=== PATIENT | female | born 1990 ===

== ENCOUNTER 2020-12-30 10:12 | Emergency (ER) | payer OTHER, SELFPAY ==
--- NOTE | ~2020-12-30 | XR_ITS ---
EXAMINATION: XR KNEE, LEFT CLINICAL INFORMATION: Pain COMPARISON: None TECHNIQUE: Four views of the left knee. FINDINGS: Bones and soft tissues are normal. No fracture or joint effusion. Alignment is anatomic. Joint spaces are well maintained. No abnormal soft tissue calcification. XR/XR knee LT 2V IMPRESSION: Normal left knee.
[2020-12-30 10:27] VITALS: BP 133/70; PULSE 78; RESP 20; TEMP 36.8; O2SAT 100; BMI 24.5
--- NOTE | 2020-12-30 12:13 | ED.LOWEXIN ---
HPI - Extremity Injury (Lower) General Chief Complaint: Extremity Problem Stated Complaint: knee pain - work related Time Seen by Provider: 12/30/20 11:29 Source: patient Mode of arrival: ambulatory Limitations: no limitations History of Present Illness HPI Narrative: 30-year-old female presenting to the ED with work related injury that occurred on Wednesday to her right knee. She reports that there was a resident that got up from the chair although she was trying to tell him to slow down while she was trying to get the walker move a chair out of the way although he started to fall therefore he leaned on the patient and she used her left knee the needle on a chair and the cushion of the chair went and in her knee with into the cushion and since then she has been having pain especially with walking she feels like her knee is unstable and she has some swelling and ecchymosis noted. She denies any other injuries complaints or concerns at this time. MD complaint: knee injury Onset (ago): day(s) (Two days ago) Place: work Severity: moderate Relieving factors: nothing Exacerbating factors: weight bearing, movement and palpation Context: other (Went through the cushion of the chair at work) Associated symptoms: swelling and ambulatory Other symptoms: none Related Data Previous Rx's Medication Instructions Recorded hydrocodone 5 mg-acetaminophen 325 1 tab PO Q8H PRN #10 tab 12/30/20 mg tablet ibuprofen 800 mg tablet 800 mg PO Q8H PRN #14 tab 12/30/20 lidocaine HCl 4 % topical cream 1 appl TOPICAL BID PRN #120 g 12/30/20 (Aspercreme (lidocaine HCl)) Allergies Allergy/AdvReac Type Severity Reaction Status Date / Time No Known Allergies Allergy Verified 12/30/20 11:29 Review of Systems Review of Systems: Constitutional : No Fever, No Chills ENT/Mouth : No Ear Pain, No Hoarseness, No sore throat Eyes: No Eye Pain, No Swelling, No Redness, No Foreign Body Cardiovascular : No Chest Pain, No SOB Respiratory : No Cough, No Dyspnea Gastrointestinal : No Nausea, No Vomiting, No Diarrhea, No abdominal Pain Genitourinary : No Dysuria, No Hematuria Musculoskeletal : Positive left knee joint pain/swelling No Myalgias Skin : No Skin lacerations, No rash Neuro : No Weakness, No Numbness, No Paresthesias, No Loss of Consciousness, No Dizziness, No Headache Psych : No Anxiety/Panic, No Depression Heme/Lymph: no easy bruising, no Lymphadenopathy Endocrine : No Polyuria, No Polydipsia Yes all other systems are reviewed and are negative [facility] Past Medical History Attestation statement: The following information was validated with the patient. Social History Social History Advance Directives: No Advance Directives Information Provided: No Physical Exam Vital Signs: Vital Signs: Last Vital Signs Temp 98.2 F 12/30/20 10:27 Pulse 78 12/30/20 10:27 Resp 20 12/30/20 10:27 BP 133/70 12/30/20 10: Pulse Ox 100 12/30/20 10:27 Body Mass Index 24.5 vital signs have been reviewed as normal and appeared to be correct. Blood pressure normal Heart rate normal. Respiration rate normal. Temperature normal. Oxygen saturation normal. Appearance: Alert. Oriented X3. No acute distress. Head: Normal external exam. Normocephalic. Atraumatic. Eyes: PERRLA. EOMI. Conjunctiva and sclera normal. Eyelids normal. ENT: Pharynx normal. Uvula midline. Moist mucous membranes. Neck: Normal inspection. Neck supple. FROM. CVS: Normal heart rate and rhythm. Respiratory: No respiratory distress. Painless inspiration. Skin: Skin warm and dry. Normal skin color. Normal skin turgor. No rashes/lesions/lacerations noted. Extremities: Patient with tenderness to palpation to left knee at the patellar aspect with mild soft tissue swelling and ecchymosis noted. No joint effusions noted. No obvious ligamentous injury. Patient has full range of motion of the left knee. No signs of infection. No calf tenderness is noted. No lower extremity edema. Otherwise all other Extremities exhibit normal range of motion and nontender. Neuro: Oriented X 3. No motor deficit. No sensory deficit. Reflexes normal. Normal steady gait. No focal neuro deficits noted. Vascular: + radial pulses/+ 2 distal pedal pulses/+2 dorsalis pedis b/l. Normal cap refill. No cyanosis noted to upper extremity nails and lower extremity toes nails. 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 On exam patient has full range of motion no obvious ligamentous or tendon injury. No signs of infection. Not consistent with septic joint. Patient has a normal steady gait. Will place an Will wrap and treat symptomatic along with referral to Orthopedics and instructions follow-up with primary care provider and to return if any new or worsening symptoms. Patient understands agrees with this plan. MDM - Extremity Injury (Lower) Medical Records Attestation: I reviewed the patient's medical records. Imaging Data Left knee x-ray: Attestation: I personally reviewed and interpreted this imaging study as follows: Radiologist's impression: FINDINGS: Bones and soft tissues are normal. No fracture or joint effusion. Alignment is anatomic. Joint spaces are well maintained. No abnormal soft tissue calcification.? XR/XR knee LT 2V IMPRESSION: Normal left knee. Discharge Plan Discharge Clinical Impression: Left knee sprain, Traumatic ecchymosis of left knee, Work related injury Patient Disposition: Home, Self-Care Instructions: Knee Sprain (ED), Contusion in Adults (ED), Return to Work Instructions (ED) Prescriptions: New lidocaine HCl [Aspercreme (lidocaine HCl)] 4 % cream 1 appl topical BID PRN (Reason: pain) Qty: 120 RF: 0 ibuprofen 800 mg tablet 800 mg PO Q8H PRN (Reason: pain) Qty: 14 RF: 0 hydrocodone-acetaminophen 5-325 mg tablet 1 tab PO Q8H PRN (Reason: pain) Qty: 10 RF: 0 Referrals: Espinoza Calvo MD [Physician] - 2 days (Call to make a follow-up appointment within 1-2 weeks if symptoms persist) Physician,None [Primary Care Provider] - 2 days (your pcp) Stand Alone Forms: Work/School Release Print Language: Jordanian
== END 2020-12-30 12:45 | disposition home or self-care (01) ==
PROVIDERS: Emergency Provider Emergency Medicine
DX: S83.92XA Sprain of unspecified site of left knee, initial encounter (principal); X58.XXXA Exposure to other specified factors, initial encounter; Y93.9 Activity, unspecified; Y92.89 Other specified places as the place of occurrence of the external cause; Y99.0 Civilian activity done for income or pay
CPT/HCPCS: 73560; 99283

== ENCOUNTER 2021-03-20 09:46 | Emergency (ER) | payer OTHER, SELFPAY ==
--- NOTE | ~2021-03-20 | XR_ITS ---
EXAMINATION: XR CHEST CLINICAL INFORMATION: Pain COMPARISON: None TECHNIQUE: Frontal view of the chest was obtained. FINDINGS: No acute finding. Lung girard are grossly clear. There is no effusion. The cardiac silhouette is unremarkable for AP projection. XR/XR chest 1V IMPRESSION: No acute finding
[2021-03-20 09:55] VITALS: BP 128/75; PULSE 80; RESP 17; TEMP 36.6; O2SAT 100; BMI 25.0
--- NOTE | 2021-03-20 10:14 | ECG_ITS ---
Test Reason : chest pain, weakness, exhaustion, kidney pain Blood Pressure : / mmHG Vent. Rate : 064 BPM Atrial Rate : 064 BPM P-R Int : 148 ms QRS Dur : 092 ms QT Int : 398 ms P-R-T Axes : 019 042 027 degrees QTc Int : 410 ms Normal sinus rhythm with sinus arrhythmia Normal ECG No previous ECGs available Referred By: Sandi Cornejo Electronically Signed By:Aguilar Grayson
--- NOTE | 2021-03-20 10:14 | ED.URI ---
HPI - URI/Sore Throat General Chief Complaint: Upper Respiratory Symptoms Stated Complaint: chest pain, fatigue Time Seen by Provider: 03/20/21 10:14 Source: patient Mode of arrival: ambulatory Limitations: no limitations History of Present Illness MD elicited complaint: cough and other (chest pain, body aches, fatigue) Pertinent past history: other (vaccinated x 2) Onset (ago): day(s) (5) Consistency: constant Severity: moderate Description of mucous: clear Able to tolerate fluids by mouth: Yes Exacerbating factors: exertion Relieving factors: nothing Context: sick contacts (exposed to COVID) Associated symptoms: chills, myalgias, rhinorrhea, cough, chest pain and shortness of breath Treatments prior to arrival: acetaminophen Related Data Previous Rx's Medication Instructions Recorded hydrocodone 5 mg-acetaminophen 325 1 tab PO Q8H PRN #10 tab 12/30/20 mg tablet ibuprofen 800 mg tablet 800 mg PO Q8H PRN #14 tab 12/30/20 lidocaine HCl 4 % topical cream 1 appl TOPICAL BID PRN #120 g 12/30/20 (Aspercreme (lidocaine HCl)) Allergies Allergy/AdvReac Type Severity Reaction Status Date / Time No Known Allergies Allergy Verified 12/30/20 11:29 Review of Systems Review of Systems: Constitutional : No Weight loss, No Fever, pos Chills ENT/Mouth : No sore throat, No Rhinorrhea Eyes: No Eye Pain, No Swelling Cardiovascular : pos Chest Pain, pos SOB, no Dyspnea on Exertion, No Orthopnea, No Edema, No Palpitations Respiratory : pos Cough, No Sputum Gastrointestinal : no Nausea, No Vomiting, No Diarrhea, No abdominal Pain, No Hematochezia, No Melena Genitourinary : No Dysuria, No Urinary Frequency Musculoskeletal : No joint pain, pos Myalgias, No Joint Swelling Skin : No Skin Lesions, No rash Neuro : No Weakness, No Numbness, No Dizziness, No Headache Psych : No Anxiety/Panic, No Depression Heme/Lymph: No Bruising, No Lymphadenopathy Endocrine : No Polyuria, No Polydipsia All other systems reviewed and are negative [facility] Past Medical History Medical History (Updated 03/20/21 @ 11:40 by Sandi Cornejo DO) No known health problems Social History Social History (Updated 03/20/21 @ 10:49 by Sandi Cornejo DO) Patient Tobacco Use Status: Current everyday Tobacco user Advance Directives: No Advance Directives Information Provided: No Patient : No Physical Exam Vital Signs: Vital Signs: Last Vital Signs Temp 98 F 03/20/21 09:55 Pulse 80 03/20/21 09:55 Resp 17 03/20/21 09:55 BP 128/75 03/20/21 09:55 Pulse Ox 98 03/20/21 10:53 BMI result Body Mass Index 25.0 Appearance: Alert. Oriented X3. No acute distress. Eyes: Pupils equal, round and reactive to light. ENT: Pharynx normal. Neck: Normal inspection. Neck supple. CVS: Normal heart rate and rhythm. Pulses normal. Respiratory: No respiratory distress. Breath sounds normal. Abdomen: Soft and nontender. Skin: Skin warm and dry. Normal skin color. Normal skin turgor. Extremities: No lower extremity edema. No calf ttp Neuro: Oriented X 3. No motor deficit. No sensory deficit. Course Course Course Narrative: ddimer negative trop and COVID/chest xray negative VS stable MDM - URI/Sore Throat MDM Narrative Medical decision making narrative: 30 yo female on OCPs here with 2 vaccines states she was exposed to COVID comes in with c/o dyspnea, chest pain, at this time will need CXR, ddimer, troponin and COVID test seems viral in nature - dispo per results and findings. Lab Data Result diagrams: 03/20/21 10:47 03/20/21 10:47 Labs: Lab Results 03/20/21 03/20/21 03/20/21 Range/Units 10:23 10:47 10:47 WBC 6.1 (4.8-10.8) X10*3/uL RBC 4.21 (4.20-5.50) X10*6/uL Hgb 13.5 (12.0-16.0) g/dl Hct 39.4 (37.0-47.0) % MCV 93.6 (80.0-98.0) fL MCH 32.1 (27.0-33.0) pg MCHC 34.3 (31.0-35.0) g/dl RDW 12.1 (11.0-16.0) % Plt Count 200 (160-400) X10*3/uL MPV 10.7 (9.4-12.3) fL Immature Gran % (Auto) 0.2 (0.0-0.4) % Neut % (Auto) 69.1 (45-73) % Lymph % (Auto) 25.6 (20-40) % [place] % (Auto) 4.1 (2-11) % Eos % (Auto) 0.5 (0-4) % Baso % (Auto) 0.5 (0-2) % Lymph # (Auto) 1.6 (1.2-4.9) X10*3/uL [place] # (Auto) 0.3 (0.1-1.2) X10*3/uL Eos # (Auto) 0.0 (0.0-0.4) X10*3/uL Baso # (Auto) 0.0 (0.0-0.2) X10*3/uL Abs Immat Gran (auto) 0.01 (0.00-0.03) X10*3/uL Absolute Neuts (auto) 4.2 (2.0-8.3) x10*3/uL Absolute Nucleated RBC 0.000 (0.0-0.012) X10*3/uL Nucleated RBC % (auto) 0.0 (0.0-0.2) /100WBC D-Dimer High Sensitivty < 150 NG/ML Sodium (135-145) mmol/L Potassium (3.3-5.1) mmol/L Chloride (96-108) mmol/L Carbon Dioxide (22-29) mmol/L Anion Gap (12-20) BUN (9-16) mg/dL Creatinine (0.5-1.4) mg/dL Estim Creat Clear Calc Estimated GFR Random Glucose (60-115) mg/dL Calcium (8.4-10.2) mg/dL Troponin I High Sens (<3.5-17.0) ng/L COVID-19 (DOUG) Negative (Negative) COVID-19 Clin Com See Note 03/20/21 03/20/21 Range/Units 10:47 10:47 WBC (4.8-10.8) X10*3/uL RBC (4.20-5.50) X10*6/uL Hgb (12.0-16.0) g/dl Hct (37.0-47.0) % MCV (80.0-98.0) fL MCH (27.0-33.0) pg MCHC (31.0-35.0) g/dl RDW (11.0-16.0) % Plt Count (160-400) X10*3/uL MPV (9.4-12.3) fL Immature Gran % (Auto) (0.0-0.4) % Neut % (Auto) (45-73) % Lymph % (Auto) (20-40) % [place] % (Auto) (2-11) % Eos % (Auto) (0-4) % Baso % (Auto) (0-2) % Lymph # (Auto) (1.2-4.9) X10*3/uL [place] # (Auto) (0.1-1.2) X10*3/uL Eos # (Auto) (0.0-0.4) X10*3/uL Baso # (Auto) (0.0-0.2) X10*3/uL Abs Immat Gran (auto) (0.00-0.03) X10*3/uL Absolute Neuts (auto) (2.0-8.3) x10*3/uL Absolute Nucleated RBC (0.0-0.012) X10*3/uL Nucleated RBC % (auto) (0.0-0.2) /100WBC D-Dimer High Sensitivty NG/ML Sodium 137 (135-145) mmol/L Potassium 3.9 (3.3-5.1) mmol/L Chloride 108 (96-108) mmol/L Carbon Dioxide 25 (22-29) mmol/L Anion Gap 8 L (12-20) BUN 12 (9-16) mg/dL Creatinine 0.73 (0.5-1.4) mg/dL Estim Creat Clear Calc 111.5 Estimated GFR > 60 Random Glucose 92 (60-115) mg/dL Calcium 9.1 (8.4-10.2) mg/dL Troponin I High Sens < 3.5 (<3.5-17.0) ng/L COVID-19 (DOUG) (Negative) COVID-19 Clin Com ECG Data Attestation: I personally reviewed and interpreted this ECG as follows: ECG interpretation date: 03/20/21 ECG interpretation time: 11:10 Interpretation: Rate: 66 Rhythm: NSR [place]: normal Normal P waves. Normal OMARI. Normal QRS complex. ST T wave : no CHITRA normal qTC: normal prior studies: no acute ischemia The study has been interpreted contemporaneously by me. . Discharge Plan Discharge Clinical Impression: Viral infection, Atypical chest pain Patient Disposition: Home, Self-Care Instructions: Chest Pain (ED), Viral Syndrome (ED) Additional Instructions: return to ED for any worsening symptoms or concerns COVID test negative EKG, blood tests for heart and blood clot are negative repeat COVID test as outpatient in 2 days Prescriptions: No Action lidocaine HCl [Aspercreme (lidocaine HCl)] 4 % cream 1 appl topical BID PRN (Reason: pain) Qty: 120 RF: 0 ibuprofen 800 mg tablet 800 mg PO Q8H PRN (Reason: pain) Qty: 14 RF: 0 hydrocodone-acetaminophen 5-325 mg tablet 1 tab PO Q8H PRN (Reason: pain) Qty: 10 RF: 0 Stand Alone Forms: Work/School Release
[2021-03-20 10:43] LABS: COVID-19 Test Negative (Negative)
[2021-03-20 10:53] VITALS: O2SAT 98
[2021-03-20 10:55] LABS: MANUAL DIFF FLAG NO
[2021-03-20 10:56] LABS: Basophils Percent Auto 0.5 % (0-2); Eosinophils Percent Auto 0.5 % (0-4); Hematocrit 39.4 % (37.0-47.0); Hemoglobin 13.5 g/dl (12.0-16.0); Imm Gran Abs Auto 0.01 X10*3/uL (0.00-0.03); Imm Gran Pct Auto 0.2 % (0.0-0.4); Lymphocytes Absolute Auto 1.6 X10*3/uL (1.2-4.9); Lymphocytes Percent Auto 25.6 % (20-40); Mean Corpuscular HGB Conc 34.3 g/dl (31.0-35.0); Mean Corpuscular Hemoglobin 32.1 pg (27.0-33.0); Mean Corpuscular Volume 93.6 fL (80.0-98.0); Mean Platelet Volume 10.7 fL (9.4-12.3); Monocytes Absolute Auto 0.3 X10*3/uL (0.1-1.2); Monocytes Percent Auto 4.1 % (2-11); Neutrophils Absolute Auto 4.2 x10*3/uL (2.0-8.3); Neutrophils Percent Auto 69.1 % (45-73); Platelet Count 200 X10*3/uL (160-400); Red Blood Count 4.21 X10*6/uL (4.20-5.50); Red Cell Distribution Width 12.1 % (11.0-16.0); White Blood Count 6.1 X10*3/uL (4.8-10.8)
[2021-03-20 11:05] LABS: D Dimer High Sensitivity < 150 NG/ML
[2021-03-20] MEDS: Ketorolac Tromethamine 30 MG/ML VIAL IVPUSH (11:10)
[2021-03-20 11:13] LABS: Anion Gap 8 (12-20); Blood Urea Nitrogen 12 mg/dL (9-16); Calcium 9.1 mg/dL (8.4-10.2); Carbon Dioxide 25 mmol/L (22-29); Chloride 108 mmol/L (96-108); Creatinine Clr Calc Pharmacy 111.5; Estimated Glomerular Filt Rate > 60; Glucose Random 92 mg/dL (60-115); Potassium 3.9 mmol/L (3.3-5.1); Sodium 137 mmol/L (135-145)
[2021-03-20 11:19] LABS: Troponin-I High Sensitivity < 3.5 ng/L (<3.5-17.0)
== END 2021-03-20 12:15 | disposition home or self-care (01) ==
PROVIDERS: Emergency Provider Emergency Medicine
DX: B34.9 Viral infection, unspecified (principal); R07.9 Chest pain, unspecified; R53.83 Other fatigue; M79.10 Myalgia, unspecified site; Z20.822 Contact with and (suspected) exposure to COVID-19; R06.02 Shortness of breath; Z79.899 Other long term (current) drug therapy
CPT/HCPCS: 36415; 71045; 80048; 84484; 85025; 85379; 87635; 93005; 96374; 99284; J1885

== ENCOUNTER 2021-07-07 08:13 | Emergency (ER) | payer OTHER, SELFPAY ==
[2021-07-07 08:35] VITALS: BP 132/68; PULSE 83; RESP 18; TEMP 36.3; O2SAT 100; BMI 26.6
--- NOTE | 2021-07-07 09:27 | ED_ITS ---
HPI - Ear Problem General Chief complaint: Ear Problems Stated complaint: Earache/Dizzy Time Seen by Provider: 07/07/21 09:10 Source: patient Mode of arrival: ambulatory Limitations: no limitations History of Present Illness MD Complaint: ear pain and decreased hearing Location: bilateral Duration: constant Severity: moderate Relieving factors: nothing Exacerbating factors: nothing Discharge from ear: no Associated symptoms ear: decreased hearing and external ear tenderness Treatment prior to arrival: attempt at ear wax removal Related Data Previous Rx's Medication Instructions Recorded hydrocodone 5 mg-acetaminophen 325 1 tab PO Q8H PRN #10 tab 12/30/20 mg tablet ibuprofen 800 mg tablet 800 mg PO Q8H PRN #14 tab 12/30/20 lidocaine HCl 4 % topical cream 1 appl TOPICAL BID PRN #120 g 12/30/20 (Aspercreme (lidocaine HCl)) amoxicillin 875 mg-potassium 1 tab PO BID 7 Days #14 tab 07/07/21 clavulanate 125 mg tablet Allergies Allergy/AdvReac Type Severity Reaction Status Date / Time No Known Allergies Allergy Verified 07/07/21 08:35 Review of Systems Review of Systems: Constitutional : No Weight loss, No Fever, No Chills, No Night Sweats, No Fatigue, No Malaise ENT/Mouth : + ear pain and decreased hearing, No Hearing loss, No Nasal Congestion, No Sinus Pain, No Hoarseness, No sore throat, No Rhinorrhea, No Swallowing Difficulty Eyes: No Eye Pain, No Swelling, No Redness, No Foreign Body, No Discharge, No Vision Changes Cardiovascular : No Chest Pain, No SOB, No Dyspnea on Exertion, No Orthopnea, No Edema, No Palpitations Respiratory : No Cough, No Sputum, No Wheezing, No Smoke Exposure, No Dyspnea Gastrointestinal : No Nausea, No Vomiting, No Diarrhea, No Constipation, No abdominal Pain, No Hematochezia, No Melena Genitourinary : no irregular bleeding, No Dysuria, No Urinary Frequency, No Hematuria, No Urinary Incontinence, No Urgency, No Flank Pain, No Urinary Flow Changes, No Hesitancy Musculoskeletal : No joint pain, No Myalgias, No Joint Swelling Skin : No Skin Lesions, No rash Neuro : No Weakness, No Numbness, No Paresthesias, No Loss of Consciousness, No Dizziness, No Headache Psych : No Anxiety/Panic, No Depression, No SI/HI/AH/VH, No Social Issues, Heme/Lymph: No Bruising, No Bleeding,No Lymphadenopathy Endocrine : No Polyuria, No Polydipsia, No Temperature Intolerance Yes all other systems are reviewed and are negative [facility] Past Medical History Attestation statement: The following information was validated with the patient. Medical History (Updated 07/07/21 @ 09:31 by WAYNE Álvarez) Ear infection Social History Social History (Updated 03/20/21 @ 10:49 by Sandi Cornejo DO) Patient Tobacco Use Status: Current everyday Tobacco user Advance Directives: No Patient : No Physical Exam Vital Signs: Vital Signs: Last Vital Signs Temp 97.3 F 07/07/21 08:35 Pulse 83 07/07/21 08:35 Resp 18 07/07/21 08:35 BP 132/68 07/07/21 08:35 Pulse Ox 100 07/07/21 08:35 BMI result Body Mass Index 26.6 vital signs have been reviewed as normal and appeared to be correct. Blood pressure normal. Heart rate normal. Respiration rate normal. Temperature normal. Oxygen saturation normal. Appearance: Alert. Oriented X3. No acute distress. Head: Normal external exam. Normocephalic. Atraumatic. Eyes: PERRLA. EOMI. Conjunctiva and sclera normal. Eyelids normal. ENT: EAC normal. Left tympanic membrane within normal limits. Tympanic membrane is intact not perforated. Right external ear canal impacted with cerumen. Pharynx normal. Uvula midline. Moist mucous membranes. Normal voice. No trismus noted. No drooling noted. No muffled voice noted. Neck: Normal inspection. Neck supple. FROM. No adenopathy. Thyroid Normal. No meningeal signs. No neck mass noted. No signs of trauma noted. CVS: Normal heart rate and rhythm. Heart sound normal. Pulses normal throughout. No murmurs/rales/gallops. Respiratory: No respiratory distress. Painless inspiration. Breath sounds normal. No wheezes/rales/rhonchi noted. Chest nontender. No crepitus is noted. No signs of trauma noted. No accessory muscle usage noted or decreased air movement noted. No signs of trauma. Back: Full range of motion noted. Nontender. Skin: Skin warm and dry. Normal skin color. Normal skin turgor. No rashes/lesions/lacerations noted. Extremities: Extremities exhibit normal range of motion and nontender. Neuro: Oriented X 3. No motor deficit. No sensory deficit. Reflexes normal. Normal steady gait. No focal neuro deficits noted. CN's II-XII intact bilaterally? Vascular: + radial pulses Normal cap refill. No cyanosis noted to upper extremity nails Course Course Course Narrative: Patient now status post right-sided cerumen impaction removal. Patient tolerated procedure well. No complications. Tympanic membrane intact after pro cedure. Mild erythema to right-sided tympanic membrane possibly early otitis media. Left tympanic membrane intact and no evidence of otitis media and no cerumen impaction. Patient denies any other symptoms. Will DC home with antibiotics and symptomatic treatment instructions return if any new or worsening symptoms to follow up with primary care provider. Patient understands agrees with this plan. Procedures Ear Wax Removal Right Ear: Cerumenolytic Used: other (Peroxide and normal saline) Results: Re-examined: cerumen removed completely TM Examination: TM(s) erythematous Ear Canal Exam: atraumatic Patient Tolerated Procedure: well Complications: no problems Technique: ear canal irrigated [facility] - Ear Medical Records Attestation: I reviewed the patient's medical records. Discharge Plan Discharge Clinical Impression: Otitis media, Impacted cerumen, right ear Patient Disposition: Home, Self-Care Instructions: Carbamide Peroxide (Into the ear), Ear Infection (ED) Prescriptions: New amoxicillin-pot clavulanate 875-125 mg tablet 1 tab PO BID 7 Days Qty: 14 0RF No Action lidocaine HCl [Aspercreme (lidocaine HCl)] 4 % cream 1 appl topical BID PRN (Reason: pain) Qty: 120 0RF ibuprofen 800 mg tablet 800 mg PO Q8H PRN (Reason: pain) Qty: 14 0RF hydrocodone-acetaminophen 5-325 mg tablet 1 tab PO Q8H PRN (Reason: pain) Qty: 10 0RF Rx Instructions: Patient may request partial fill Referrals: Physician,None [Primary Care Provider] - (Your PCP) Print Language: Syrian
== END 2021-07-07 09:44 | disposition home or self-care (01) ==
PROVIDERS: Emergency Provider Emergency Medicine
DX: H66.91 Otitis media, unspecified, right ear (principal); H61.21 Impacted cerumen, right ear; R42 Dizziness and giddiness; Z79.899 Other long term (current) drug therapy; F17.200 Nicotine dependence, unspecified, uncomplicated; Z71.6 Tobacco abuse counseling
CPT/HCPCS: 69209; 99283

== ENCOUNTER 2021-12-04 08:07 | Emergency (ER) | payer OTHER, SELFPAY ==
--- NOTE | ~2021-12-04 | XR_ITS ---
EXAMINATION: XR RIBS, RIGHT CLINICAL INFORMATION: History of pain after fall COMPARISON: 03/20/2021 TECHNIQUE: 3 views of the right ribs, and PA view of chest. FINDINGS: Lungs are well-inflated and clear. Trachea is midline in position. No interstitial disease, consolidation or mass. No pleural effusion or pneumothorax. Cardiac silhouette and pulmonary vessels are normal in size. The mediastinum and orquidea have normal contour. Chronic mild levocurvature of the lower cervical and upper thoracic spine. The ribs have a normal appearance. No evidence of acute, displaced rib fracture. XR/XR ribs RT min 3V w CXR1V IMPRESSION: * No acute cardiopulmonary abnormality. * No evidence of rib fracture.
[2021-12-04 08:13] VITALS: BP 154/85; PULSE 75; RESP 189; TEMP 37; O2SAT 100; BMI 26.6
--- NOTE | 2021-12-04 08:25 | ED_ITS ---
HPI - Back Pain/Injury General Chief Complaint: Back Pain/Injury Stated Complaint: back spasm Time Seen by Provider: 12/04/21 08:24 Source: patient Mode of arrival: ambulatory Limitations: no limitations History of Present Illness HPI Narrative: 31 yo female with a fall one month ago in the shower she hit her R ribs, she notes since yesterday she has back spasms from R neck down to R lumbar lower back no new trauma. It hurts to move and to breathe. She denies new injury tried tylenol without relief. Has had this before but never to this degree. No imaging of ribs after fall MD elicited complaint: back pain Pertinent past history: prior back pain and recent trauma Onset (ago): day(s) (1) Timing: progressively worsening Severity: moderate Similar Symptoms Previously: Yes Location: lumbar spine, thoracic spine, right lower back and right upper back Radiation: none Exacerbating factors: movement Relieving factors: immobilization Context: fall (1 month ago) Associated symptoms: denies other symptoms Treatments prior to arrival: acetaminophen Related Data Previous Rx's Medication Instructions Recorded hydrocodone 5 mg-acetaminophen 325 1 tab PO Q8H PRN pain #10 tabs 12/30/20 mg tablet ibuprofen 800 mg tablet 800 mg PO Q8H PRN pain #14 tabs 12/30/20 lidocaine HCl 4 % topical cream 1 appl topical BID PRN pain #120 12/30/20 (Aspercreme (lidocaine HCl)) grams amoxicillin 875 mg-potassium 1 tab PO BID 7 days #14 tabs 07/07/21 clavulanate 125 mg tablet diazepam 5 mg tablet (Valium) 5 mg PO TID PRN muscle spasm #10 12/04/21 tabs ibuprofen 600 mg tablet 600 mg PO Q6H PRN pain #30 tabs 12/04/21 lidocaine 5 % topical patch 1 patch topical DAILY #30 ea 12/04/21 Allergies Allergy/AdvReac Type Severity Reaction Status Date / Time No Known Allergies Allergy Verified 07/07/21 08:35 Review of Systems Review of Systems: Constitutional : No Weight loss, No Fever, No Chills, ENT/Mouth : No Hearing loss, No Ear Pain, No Nasal Congestion, No Sinus Pain, No Hoarseness, No sore throat, No Rhinorrhea, No Swallowing Difficulty Cardiovascular : No Chest Pain, No SOB Respiratory : No Cough, No Dyspnea Gastrointestinal : No Nausea, No Vomiting, No Diarrhea, No abdominal Pain, No Hematochezia, No Melena Genitourinary : No Dysuria, No Urinary Frequency, No Hematuria, No Urinary Incontinence, Musculoskeletal : positive back pain Skin : No Skin Lesions, No rash Neuro : No Weakness, No Numbness, No Paresthesias, no loss of bowel or bladder incontinence, no saddle anesthesia All other systems reviewed and are negative [facility] Past Medical History Attestation statement: The following information was validated with the patient. Medical History Ear infection Social History Social History Patient Tobacco Use Status: Current everyday Tobacco user Advance Directives: No Advance Directives Information Provided: No Physical Exam Vital Signs: Vital Signs: Last Vital Signs Temp 98.6 F 12/04/21 08:13 Pulse 75 12/04/21 08:13 Resp 189 H 12/04/21 08:13 BP 154/85 H 12/04/21 08:13 Pulse Ox 100 12/04/21 08:13 O2 Del Method 12/04/21 08:13 BMI result Body Mass Index 26.6 Appearance: Alert. Oriented X3. No acute distress. in pain Eyes: Pupils equal, round and reactive to light. ENT: Pharynx normal. Neck: Normal inspection. Neck supple. CVS: Normal heart rate and rhythm. Pulses normal. Respiratory: No respiratory distress. Breath sounds normal. Abdomen: Soft and nontender. Back: ttp along R sided lumbar paraspinals along thoracic and cervical area that reproduces pain - hurts to touch Skin: Skin warm and dry. Normal skin color. Normal skin turgor. Extremities: No lower extremity edema. No calf ttp Neuro: Oriented X 3. No motor deficit. No sensory deficit. Course Course Course Narrative: feels much better stable for DC MDM - Back Pain/Injury MDM Narrative Medical decision making narrative: 31 yo female with no sig PMH here with back spasms - did have recent fall she has no b/b incontinence no saddle anesthesia. Did fall and strike ribs 1 month ago. The patient does report it hurts to breathe but she is not tachycardic or hypoxic no signs of DVT - patient is on OCPs but her pain is reproduceable and related to spasm I do not think this is PE. PO pain control and rib films given recent fall and peristent pain in that area Discharge Plan Discharge Clinical Impression: Back muscle spasm Patient Disposition: Home, Self-Care Instructions: Muscle Spasm (ED), Back Pain (ED) Additional Instructions: return to ED for any worsening symptoms or concerns xray negative for acute findings use heat and ice to alleviate the pain Prescriptions: New ibuprofen 600 mg tablet 600 mg PO Q6H PRN (Reason: pain) Qty: 30 0RF diazepam [Valium] 5 mg tablet 5 mg PO TID PRN (Reason: muscle spasm) Qty: 10 0RF Rx Instructions: partial fill is okay lidocaine 5 % adhesive patch,medicated 1 patch topical DAILY Qty: 30 0RF Rx Instructions: leave on most painful area for up to 12 hrs No Action lidocaine HCl [Aspercreme (lidocaine HCl)] 4 % cream 1 appl topical BID PRN (Reason: pain) Qty: 120 0RF ibuprofen 800 mg tablet 800 mg PO Q8H PRN (Reason: pain) Qty: 14 0RF hydrocodone-acetaminophen 5-325 mg tablet 1 tab PO Q8H PRN (Reason: pain) Qty: 10 0RF Rx Instructions: Patient may request partial fill amoxicillin-pot clavulanate 875-125 mg tablet 1 tab PO BID 7 Days Qty: 14 0RF Stand Alone Forms: Work/School Release
[2021-12-04] MEDS: Ketorolac Tromethamine 30 MG/ML VIAL IM (09:02)
[2021-12-04] MEDS: diazePAM 2 MG TABLET 5 MG PO (09:02)
== END 2021-12-04 10:59 | disposition home or self-care (01) ==
PROVIDERS: Emergency Provider Emergency Medicine
DX: R07.81 Pleurodynia (principal); M54.50 Low back pain, unspecified; F17.200 Nicotine dependence, unspecified, uncomplicated; Z71.6 Tobacco abuse counseling; Z79.899 Other long term (current) drug therapy
CPT/HCPCS: 71101; 96372; 99283; 99284; J1885

== ENCOUNTER 2022-03-24 10:37 | Emergency (ER) | payer OTHER, SELFPAY ==
--- NOTE | ~2022-03-24 | XR_ITS ---
EXAMINATION: XR RIBS, LEFT CLINICAL INFORMATION: Left lower rib pain. COMPARISON: None TECHNIQUE: 3 views of the left ribs were obtained. Chest one view FINDINGS: Lungs are clear. No consolidation, pneumothorax, or pleural effusion. The cardiomediastinal silhouette and pulmonary vasculature are normal. Osseous structures are unremarkable. Ribs are intact. No fractures are identified. XR/XR ribs LT min 3V w CXR1V IMPRESSION: Unremarkable chest examination.
[2022-03-24 11:11] VITALS: BP 127/79; PULSE 88; RESP 20; TEMP 36.8; O2SAT 100; BMI 27.3
--- NOTE | 2022-03-24 11:12 | ED.CHESTPAIN ---
HPI - Chest Pain General Chief Complaint: General Medical Stated Complaint: Cough Pain Time Seen by Provider: 03/24/22 13:33 Related Data Previous Rx's Medication Instructions Recorded hydrocodone 5 mg-acetaminophen 325 1 tab PO Q8H PRN pain #10 tabs 12/30/20 mg tablet ibuprofen 800 mg tablet 800 mg PO Q8H PRN pain #14 tabs 12/30/20 lidocaine HCl 4 % topical cream 1 appl topical BID PRN pain #120 12/30/20 (Aspercreme (lidocaine HCl)) grams amoxicillin 875 mg-potassium 1 tab PO BID 7 days #14 tabs 07/07/21 clavulanate 125 mg tablet diazepam 5 mg tablet (Valium) 5 mg PO TID PRN muscle spasm #10 12/04/21 tabs ibuprofen 600 mg tablet 600 mg PO Q6H PRN pain #30 tabs 12/04/21 lidocaine 5 % topical patch 1 patch topical DAILY #30 ea 12/04/21 Allergies Allergy/AdvReac Type Severity Reaction Status Date / Time No Known Allergies Allergy Verified 07/07/21 08:35 [facility] Past Medical History Medical History Ear infection Social History Social History Patient Tobacco Use Status: Current everyday Tobacco user Advance Directives: Yes Advance Directives Information Provided: Yes Advance Directives on File: No Physical Exam Vital Signs: Vital Signs: Last Vital Signs Temp 98.3 F 03/24/22 11:11 Pulse 71 03/24/22 13:33 Resp 16 03/24/22 13:33 BP 136/74 03/24/22 13:33 Pulse Ox 98 03/24/22 13:33 O2 Del Method 03/24/22 13:33 BMI result Body Mass Index 27.3 Course Course Course Narrative: RME--31yo F c/o lower left sided rib pain and hearing popping sound s/p coughing. admits has been coughing x weeks Mild left lower rib tenderness elicited on exam. Abdomen soft nontender rib series, COVID and influenza ordered in triage Medical Decision Making Lab Data Labs: Lab Results 03/24/22 03/24/22 Range/Units 11:18 11:18 COVID-19 (DOUG) Negative (Negative) COVID-19 Clin Com See Note Influenza Type A (JERONIMO) Negative (Negative) Influenza Type B (JERONIMO) Negative (Negative) Influenza A & B Note See Note Discharge Plan Discharge Clinical Impression: Acute costochondritis Patient Disposition: Home, Self-Care Instructions: Costochondritis (ED) Additional Instructions: As we discussed, I do not feel any hernia on your examination. Your testing for COVID and flu today were negative. Your chest x-ray was normal, there is no sign of fracture to the ribs. At this time your pain is most consistent with a muscular nature, likely due to inflammation with the current cough you have been experiencing. Please be sure to rest, brace that area with your arm or hand during episodes of coughing to help decrease pain. You may consider the use of pajf-zfo-retdcag cough medications such as Robitussin. You can take ibuprofen 200 mg, 3 tablets (600mg) every 6-8 hours as needed for pain, in addition to Tylenol 500 mg, 2 tablets (1,000mg) every 4-6 hours as needed for pain, but not to exceed 3 doses daily (3,000mg).? Follow-up with your primary care provider as needed for persistent symptoms. Return back to emergency department any new or worsening symptoms or concerns. Prescriptions: No Action lidocaine HCl [Aspercreme (lidocaine HCl)] 4 % cream 1 appl topical BID PRN (Reason: pain) Qty: 120 0RF ibuprofen 800 mg tablet 800 mg PO Q8H PRN (Reason: pain) Qty: 14 0RF hydrocodone-acetaminophen 5-325 mg tablet 1 tab PO Q8H PRN (Reason: pain) Qty: 10 0RF Rx Instructions: Patient may request partial fill amoxicillin-pot clavulanate 875-125 mg tablet 1 tab PO BID 7 Days Qty: 14 0RF ibuprofen 600 mg tablet 600 mg PO Q6H PRN (Reason: pain) Qty: 30 0RF diazepam [Valium] 5 mg tablet 5 mg PO TID PRN (Reason: muscle spasm) Qty: 10 0RF Rx Instructions: partial fill is okay lidocaine 5 % adhesive patch,medicated 1 patch topical DAILY Qty: 30 0RF Rx Instructions: leave on most painful area for up to 12 hrs Referrals: Physician,None [Primary Care Provider] - Stand Alone Forms: Work/School Release Interventions: ED Discharge Assessment Last Done: 03/24/22 13:50 Discharge Date/Time: 03/24/22 13:53
[2022-03-24 11:38] LABS: COVID-19 Test Negative (Negative); IDNOW Serial# BCCEAD1C
[2022-03-24 11:42] LABS: IDNOW Serial# 9DB6401D; Influenza A Negative (Negative); Influenza B2 Negative (Negative)
[2022-03-24 13:33] VITALS: BP 136/74; PULSE 71; RESP 16; O2SAT 98
--- NOTE | 2022-03-24 13:36 | ED.URI ---
HPI - URI/Sore Throat General Chief Complaint: General Medical Stated Complaint: Cough Pain Time Seen by Provider: 03/24/22 13:33 Source: patient Mode of arrival: ambulatory Limitations: no limitations History of Present Illness HPI Narrative: Patient is a 31-year-old female who presents to emergency department for evaluation of cough with left lower chest pain of sudden onset today. She states that she felt a ?popping sensation? after coughing. She is concerned that there is some type of internal injury there. Has had nonproductive cough for a couple of weeks. Denies fevers, chills, substernal/upper chest pain, shortness of breath, difficulty breathing, nausea, vomiting, abdominal pain. Denies any sick contacts. Related Data Previous Rx's Medication Instructions Recorded hydrocodone 5 mg-acetaminophen 325 1 tab PO Q8H PRN pain #10 tabs 12/30/20 mg tablet ibuprofen 800 mg tablet 800 mg PO Q8H PRN pain #14 tabs 12/30/20 lidocaine HCl 4 % topical cream 1 appl topical BID PRN pain #120 12/30/20 (Aspercreme (lidocaine HCl)) grams amoxicillin 875 mg-potassium 1 tab PO BID 7 days #14 tabs 07/07/21 clavulanate 125 mg tablet diazepam 5 mg tablet (Valium) 5 mg PO TID PRN muscle spasm #10 12/04/21 tabs ibuprofen 600 mg tablet 600 mg PO Q6H PRN pain #30 tabs 12/04/21 lidocaine 5 % topical patch 1 patch topical DAILY #30 ea 12/04/21 Allergies Allergy/AdvReac Type Severity Reaction Status Date / Time No Known Allergies Allergy Verified 07/07/21 08:35 Review of Systems Review of Systems: Constitutional: No fever. No chills. No weakness. No fatigue. ENT/ Mouth: No Ear Pain, no Nasal Congestion, no sore throat, No Rhinorrhea, No Swallowing Difficulty Skin: No rash or itching. Cardiovascular: No chest pain. No palpitations. Respiratory: No shortness of breath. Positive cough. No sputum production. Gastrointestinal: No nausea. No vomiting. No diarrhea. No abdominal pain. Genitourinary: No burning micturition. No urinary frequency. Neurologic: No headache. No dizziness. No syncope. No numbness or tingling in the extremities. Musculoskeletal: No muscle pain. No back pain. No joint pain or stiffness. Yes all other systems are reviewed and are negative PMFSH Past Medical History Attestation statement: The following information was validated with the patient. Source: old records reviewed Medical History Ear infection Social History Social History Patient Tobacco Use Status: Current everyday Tobacco user Advance Directives: Yes Advance Directives Information Provided: Yes Advance Directives on File: No Physical Exam Vital Signs: Vital Signs: Last Vital Signs Temp 98.3 F 03/24/22 11:11 Pulse 71 03/24/22 13:33 Resp 16 03/24/22 13:33 BP 136/74 03/24/22 13:33 Pulse Ox 98 03/24/22 13:33 O2 Del Method 03/24/22 13:33 BMI result Body Mass Index 27.3 Vital signs have been reviewed as normal and appeared to be correct. Blood pressure normal.? Heart rate normal.? Respiration rate normal. Temperature normal.? Oxygen saturation normal. Appearance: Alert.?Oriented to person, place and time. No acute distress.?Normal affect. Eyes: Pupils equal, round and reactive to light.? ENT: TM normal bilaterally. Pharynx normal.?? Neck: Normal inspection.? Neck supple.??No cervical adenopathy CVS: Heart sounds normal. Normal heart rate and rhythm.? Pulses normal.?? Respiratory: No respiratory distress.? Lung sounds clear to auscultation bilaterally?? Abdomen: Soft and non-tender. Normoactive bowel sounds. Skin: Skin warm and dry.? Normal skin color.? ? Extremities: No lower extremity edema.? Neuro: Moves all extremities spontaneously. Sensation intact bilaterally. No motor deficits. Ambulates with normal steady gait. Medical Decision Making Medical Decision Making MDM Narrative: Patient is a 31-year-old female who presents emergency department for evaluation of left lower chest wall pain in the setting of recent cough. Reporting a ?popping sensation? today during cough. Physical examination is benign, no appreciated hernia, palpable tenderness over the 6/7 intercostal region. No respiratory distress. Vital signs are stable without hypoxia or tachypnea. Chest x-ray without evidence of pneumonia, pneumothorax, or rib fracture, viral testing is negative, PERC negative, low suspicion for pulmonary embolism. Not consistent with ACS. Discussed OTC treatment of cough with Robitussin, offered prescription for Tessalon however she declines. Discussed the use of OTC NSAID for costochondritis. Patient verbalized understanding. She is stable for discharge. Differential Diagnosis Differential Diagnoses: The differential diagnosis associated with the presentation includes (As noted above) Lab Data MDM Lab Attestation statement: I reviewed the patient's lab results. Labs: Lab Results 03/24/22 03/24/22 Range/Units 11:18 11:18 COVID-19 (DOUG) Negative (Negative) COVID-19 Clin Com See Note Influenza Type A (JERONIMO) Negative (Negative) Influenza Type B (JERONIMO) Negative (Negative) Influenza A & B Note See Note Independent Interpretation I performed an independent interpretation of an: Plain X-Ray Interpretation: I personally interpreted chest x-ray and agree with radiologist impression, no evidence of pneumonia, rib fracture, or pneumothorax. Radiology Impression Discussion of test interpretation with radiology: I have reviewed the radiologist's reading. Radiologist Impression: XR/XR ribs LT min 3V w CXR1V IMPRESSION: Unremarkable chest examination. Prescription Management I considered prescription management with: Other (Offered prescription for Tessalon however patient declines.) Discharge Plan Discharge Clinical Impression: Acute costochondritis Patient Disposition: Home, Self-Care Instructions: Costochondritis (ED) Additional Instructions: As we discussed, I do not feel any hernia on your examination. Your testing for COVID and flu today were negative. Your chest x-ray was normal, there is no sign of fracture to the ribs. At this time your pain is most consistent with a muscular nature, likely due to inflammation with the current cough you have been experiencing. Please be sure to rest, brace that area with your arm or hand during episodes of coughing to help decrease pain. You may consider the use of xyrd-zel-kvomxvd cough medications such as Robitussin. You can take ibuprofen 200 mg, 3 tablets (600mg) every 6-8 hours as needed for pain, in addition to Tylenol 500 mg, 2 tablets (1,000mg) every 4-6 hours as needed for pain, but not to exceed 3 doses daily (3,000mg).? Follow-up with your primary care provider as needed for persistent symptoms. Return back to emergency department any new or worsening symptoms or concerns. Prescriptions: No Action lidocaine HCl [Aspercreme (lidocaine HCl)] 4 % cream 1 appl topical BID PRN (Reason: pain) Qty: 120 0RF ibuprofen 800 mg tablet 800 mg PO Q8H PRN (Reason: pain) Qty: 14 0RF hydrocodone-acetaminophen 5-325 mg tablet 1 tab PO Q8H PRN (Reason: pain) Qty: 10 0RF Rx Instructions: Patient may request partial fill amoxicillin-pot clavulanate 875-125 mg tablet 1 tab PO BID 7 Days Qty: 14 0RF ibuprofen 600 mg tablet 600 mg PO Q6H PRN (Reason: pain) Qty: 30 0RF diazepam [Valium] 5 mg tablet 5 mg PO TID PRN (Reason: muscle spasm) Qty: 10 0RF Rx Instructions: partial fill is okay lidocaine 5 % adhesive patch,medicated 1 patch topical DAILY Qty: 30 0RF Rx Instructions: leave on most painful area for up to 12 hrs Referrals: Physician,None [Primary Care Provider] -
== END 2022-03-24 13:53 | disposition home or self-care (01) ==
PROVIDERS: Physician Assistant; Emergency Provider Emergency Medicine
DX: M94.0 Chondrocostal junction syndrome [Tietze] (principal); R05.9 Cough, unspecified; Z20.822 Contact with and (suspected) exposure to COVID-19; F17.200 Nicotine dependence, unspecified, uncomplicated; Z79.899 Other long term (current) drug therapy
CPT/HCPCS: 71101; 87502; 87635; 99283

== ENCOUNTER 2022-03-29 15:27 | Emergency (ER) | payer OTHER, SELFPAY ==
--- NOTE | ~2022-03-29 | XR_ITS ---
EXAMINATION: XR CHEST CLINICAL INFORMATION: Cough/sputum production COMPARISON: Left rib x-rays including frontal chest March 24, 2022 TECHNIQUE: 2 views of the chest were obtained. FINDINGS: Cardiac silhouette is normal in size. The lungs are well aerated. There is no lobar consolidation. No pleural effusion or pneumothorax. No acute osseous abnormality. XR/XR chest 2V IMPRESSION: No acute pulmonary pathology.
--- NOTE | 2022-03-29 15:32 | ED.URI ---
HPI - URI/Sore Throat General Chief Complaint: Upper Respiratory Symptoms <WAYNE Álvarez - Last Filed: 03/29/22 15:36> Stated Complaint: ? respiratory infection <WAYNE Álvarez - Last Filed: 03/29/22 15:36> Time Seen by Provider: 03/29/22 17:50 <WAYNE Álvarez - Last Filed: 03/29/22 15:36> Source: patient <WAYNE Pond - Last Filed: 03/29/22 18:49> Mode of arrival: ambulatory <WAYNE Pond - Last Filed: 03/29/22 18:49> History of Present Illness HPI Narrative: 31-year-old female with a past medical history of costochondritis presenting to the ED complaining upper respiratory symptoms including sinus pressure, nasal congestion, rhinorrhea, productive cough, myalgias x weeks and bilateral ear pain /clogging x today. Denies fever, drainage from ear, SOB/CP, pedal edema, recent travel, sick contacts. <WAYNE Pond - Last Filed: 03/29/22 18:49> MD elicited complaint: cough, sore throat, rhinorrhea and nasal congestion <WAYNE Pond - Last Filed: 03/29/22 18:49> Onset (ago): week(s) <WAYNE Pond - Last Filed: 03/29/22 18:49> Related Data Home Medications: Previous Rx's Medication Instructions Recorded hydrocodone 5 mg-acetaminophen 325 1 tab PO Q8H PRN pain #10 tabs 12/30/20 mg tablet ibuprofen 800 mg tablet 800 mg PO Q8H PRN pain #14 tabs 12/30/20 lidocaine HCl 4 % topical cream 1 appl topical BID PRN pain #120 12/30/20 (Aspercreme (lidocaine HCl)) grams amoxicillin 875 mg-potassium 1 tab PO BID 7 days #14 tabs 07/07/21 clavulanate 125 mg tablet diazepam 5 mg tablet (Valium) 5 mg PO TID PRN muscle spasm #10 12/04/21 tabs ibuprofen 600 mg tablet 600 mg PO Q6H PRN pain #30 tabs 12/04/21 lidocaine 5 % topical patch 1 patch topical DAILY #30 ea 12/04/21 acetaminophen 500 mg tablet 500 mg PO Q6H PRN fever or pain 03/29/22 (Tylenol Extra Strength) #14 tabs amoxicillin 875 mg-potassium 1 tab PO BID 7 days #14 tabs 03/29/22 clavulanate 125 mg tablet benzonatate 100 mg capsule 100 mg PO TID PRN cough #14 caps 03/29/22 fluticasone propionate 50 2 spray intranasal DAILY #16 grams 03/29/22 mcg/actuation nasal spray,suspension (Flonase Allergy Relief) prednisone 20 mg tablet 40 mg PO DAILY 5 days #10 tabs 03/29/22 <WAYNE Álvarez - Last Filed: 03/29/22 15:36> Allergies/Adverse Reactions: Allergies Allergy/AdvReac Type Severity Reaction Status Date / Time No Known Allergies Allergy Verified 07/07/21 08:35 <WAYNE Álvarez - Last Filed: 03/29/22 15:36> Review of Systems Review of Systems: Constitutional: No Fever, No Chills ENT/Mouth: + Ear Pain, + Nasal Congestion, + Sinus Pain, No Hoarseness, + sore throat, + Rhinorrhea, No Swallowing Difficulty Cardiovascular: No Chest Pain, No SOB Respiratory: + Cough, + Sputum, No Wheezing Gastrointestinal: No Nausea, No Vomiting, No Diarrhea, No Constipation, No Abdominal pain Genitourinary: No Dysuria, No Urinary Frequency, No Hematuria, No Flank Pain Musculoskeletal: No joint pain, + Myalgias, No Joint Swelling Skin: No Skin Lesions, No rash Neuro: No Weakness <WAYNE Pond Last Filed: 03/29/22 18:49> Yes all other systems are reviewed and are negative <WAYNE Pond - Last Filed: 03/29/22 18:49> Constitutional: Constitutional: Reports as per HPI <WAYNE Pond Last Filed: 03/29/22 18:49> [facility] Past Medical History Attestation statement: The following information was validated with the patient. <WAYNE Pond Last Filed: 03/29/22 18:49> Medical History: Medical History Ear infection <WAYNE Álvarez Last Filed: 03/29/22 15:36> Social History Social History: Social History Patient Tobacco Use Status: Current everyday Tobacco user Advance Directives: No Advance Directives Information Provided: No <WAYNE Álvarez - Last Filed: 03/29/22 15:36> Physical Exam Vital Signs: Vital Signs: Last Vital Signs Temp 97.5 F 03/29/22 17:57 Pulse 78 03/29/22 17:57 Resp 16 03/29/22 17:57 BP 131/75 03/29/22 17:57 Pulse Ox 99 03/29/22 17:57 O2 Del Method 03/29/22 17:57 BMI result Body Mass Index 26.6 <WAYNE Álvarez - Last Filed: 03/29/22 15:36> Vital Signs: Last Vital Signs Temp 97.5 F 03/29/22 17:57 Pulse 78 03/29/22 17:57 Resp 16 03/29/22 17:57 BP 131/75 03/29/22 17:57 Pulse Ox 99 03/29/22 17:57 O2 Del Method 03/29/22 17:57 BMI result Body Mass Index 26.6 <WAYNE Pond - Last Filed: 03/29/22 18:49> Const: General: cooperative, healthy appearing and no acute distress <WAYNE Pond - Last Filed: 03/29/22 18:49> Orientation/consciousness: patient oriented x3 <WAYNE Pond Last Filed: 03/29/22 18:49> Limitations: no limitations <WAYNE Pond Last Filed: 03/29/22 18:49> HEENT: Head: Yes normal to inspection and Yes atraumatic <WAYNE Pond Last Filed: 03/29/22 18:49> Ears: hearing grossly normal bilaterally, external ears normal, mastoids normal and TM abnormal bulging on the right, dull on the left, erythematous on the right and with loss of landmarks on the right <WAYNE Pond Last Filed: 03/29/22 18:49> General nose exam: Normal external nose present and Nasal discharge present <WAYNE Pond Last Filed: 03/29/22 18:49> Face and sinus: Yes normal facial exam <WAYNE Pond - Last Filed: 03/29/22 18:49> Mouth: Normal oral and palatal mucosa present <WAYNE Pond Last Filed: 03/29/22 18:49> Throat: Yes posterior oropharynx normal, Yes tonsils normal, Yes uvula midline, No peritonsillar mass, No uvula laterally displaced and No uvular edema <WAYNE Pond Last Filed: 03/29/22 18:49> Eyes: General: appearance normal, both eyes and all related structures <WAYNE Pond - Last Filed: 03/29/22 18:49> EOM: EOMs intact bilaterally <WAYNE Pond Last Filed: 03/29/22 18:49> Neck: Neck: Yes normal visual inspection, Yes full ROM, Yes no lymphadenopathy and Yes no meningeal signs <WAYNE Pond Last Filed: 03/29/22 18:49> Resp: Effort & Inspection: normal respiratory effort and no respiratory distress <WAYNE Pond Last Filed: 03/29/22 18:49> Auscultation: clear to auscultation bilaterally, no crackles, no rales, no rhonchi and no wheezes <Eugenie Martinez [facility] Last Filed: 03/29/22 18:49> Cardio: Rate: regular rate <WAYNE Pond Last Filed: 03/29/22 18:49> Heart sounds: S1 normal heart sound present and S2 normal heart sound present <WAYNE Pond Last Filed: 03/29/22 18:49> GI: Inspection: Yes normal to inspection <WAYNE Pond - Last Filed: 03/29/22 18:49> Skin: Rashes: no rashes <WAYNE oPnd Last Filed: 03/29/22 18:49> Wounds: no wounds <WAYNE Pond Last Filed: 03/29/22 18:49> Neuro: General: patient oriented x3, tone normal and no meningeal signs <WAYNE Pond - Last Filed: 03/29/22 18:49> Gait exam (Neuro): Normal gait present <WAYNE Pond Last Filed: 03/29/22 18:49> Extrem: General: Yes normal to inspection <WAYNE Pond - Last Filed: 03/29/22 18:49> Course Course Course Narrative: Jennifer-15:32PM - 31yoF presenting to the ED c c/o chills, body aches, headaches, nasal congestion/rhinorrhea with sinus pressure pain, left ear pain, sneezing, cough c green sputum production since [place] which continues to worsen. Negative COVID test prior to arrival. Was seen here on 03/24/2022 for costochondritis. Denies any other symptoms complaints or concerns at this time. Plan: Chest x-ray, COVID/RSV/flu swab ordered at this time. Patient will be sent to the waiting room to be evaluated in [facility]. <WAYNE Álvarez - Last Filed: 03/29/22 15:36> E-15:32PM - 31yoF presenting to the ED c c/o chills, body aches, headaches, nasal congestion/rhinorrhea with sinus pressure pain, left ear pain, sneezing, cough c green sputum production since [place] which continues to worsen. Negative COVID test prior to arrival. Was seen here on 03/24/2022 for costochondritis. Denies any other symptoms complaints or concerns at this time. Plan: Chest x-ray, COVID/RSV/flu swab ordered at this time. Patient will be sent to the waiting room to be evaluated in [facility]. - CXR unremarkable. COVID-19 /influenza/RSV negative Results discussed with patient including worrisome signs and symptoms and strict return precautions, and when to return to the emergency department. They verbalized understanding and feel safe for discharge at this time. <WAYNE Pond Last Filed: 03/29/22 18:49> Medications Administered Discontinued Medications Generic Name Dose Route Start Last Admin Trade Name Freq PRN Reason Stop Dose Admin Amoxicillin/Clavulanate Potassium 875 mg 03/29/22 18:11 03/29/22 18:21 Amoxicillin/Potassium Clav 875 Mg Tablet PO 03/29/22 18:12 875 mg ONCE ONE Administration Benzonatate 100 mg 03/29/22 18:11 03/29/22 18:21 Benzonatate 100 Mg Capsule PO 03/29/22 18:12 100 mg ONCE ONE Administration Prednisone 40 mg 03/29/22 18:11 03/29/22 18:21 Prednisone 20 Mg Tablet PO 03/29/22 18:12 40 mg ONCE ONE Administration <WAYNE Álvarez - Last Filed: 03/29/22 15:36> Medications Administered Discontinued Medications Generic Name Dose Route Start Last Admin Trade Name Andrew PRN Reason Stop Dose Admin Amoxicillin/Clavulanate Potassium 875 mg 03/29/22 18:11 03/29/22 18:21 Amoxicillin/Potassium Clav 875 Mg Tablet PO 03/29/22 18:12 875 mg ONCE ONE Administration Benzonatate 100 mg 03/29/22 18:11 03/29/22 18:21 Benzonatate 100 Mg Capsule PO 03/29/22 18:12 100 mg ONCE ONE Administration Prednisone 40 mg 03/29/22 18:11 03/29/22 18:21 Prednisone 20 Mg Tablet PO 03/29/22 18:12 40 mg ONCE ONE Administration <WAYNE Pond - Last Filed: 03/29/22 18:49> Medical Decision Making Medical Decision Making MDM Narrative: 31-year-old female with a past medical history of costochondritis presenting to the ED complaining upper respiratory symptoms including sinus pressure, nasal congestion, rhinorrhea, productive cough, myalgias x weeks and bilateral ear pain /clogging x today on exam vital signs stable, NAD, nontoxic appearing, lungs CTA, or pharynx WNL, right TM with erythema/ bulging, mastoid WNL. Concern for viral syndrome vs bronchitis vs otitis media vs sinusitis. Rule out pneumonia plan: COVID-19/influenza/ RSV, CXR Please refer to course for remaining clinical decision making, interpretation of labs/imaging results, and discussions with consultants and/or family members. <WAYNE Pond - Last Filed: 03/29/22 18:49> Differential Diagnosis Differential Diagnoses: The differential diagnosis associated with the presentation includes <WAYNE Pond Last Filed: 03/29/22 18:49> As above <WAYNE Pond Last Filed: 03/29/22 18:49> Lab Data Labs: Lab Results 03/29/22 Range/Units 16:06 Influenza Type A (PCR) NEGATIVE (Negative) Influenza Type B (PCR) NEGATIVE (Negative) RSV RNA Qual (PCR) NEGATIVE (Negative) SARS-CoV-2 RNA (RT-PCR) NEGATIVE (Negative) <WAYNE Álvarez - Last Filed: 03/29/22 15:36> Lab Results 03/29/22 Range/Units 16:06 Influenza Type A (PCR) NEGATIVE (Negative) Influenza Type B (PCR) NEGATIVE (Negative) RSV RNA Qual (PCR) NEGATIVE (Negative) SARS-CoV-2 RNA (RT-PCR) NEGATIVE (Negative) <WAYNE Pnod - Last Filed: 03/29/22 18:49> Discharge Plan Discharge Clinical Impression: Otitis media, Bronchitis <WAYNE Álvarez - Last Filed: 03/29/22 15:36> Patient Disposition: Home, Self-Care <WAYNE Álvarez - Last Filed: 03/29/22 15:36> Instructions: Ear Infection (ED), Acute Bronchitis (ED) <WAYNE Álvarez - Last Filed: 03/29/22 15:36> Additional Instructions: you have an inner ear infection and bronchitis Augmentin is an antibiotic please take as prescribed. Tessalon Perles are for cough. Flonase a nasal decongestant. Prednisone is a steroid rest. Stay hydrated. Take Tylenol and Motrin. Follow-up with your doctor <WAYNE Álvarez - Last Filed: 03/29/22 15:36> Prescriptions: New prednisone 20 mg tablet 40 mg PO DAILY 5 Days Qty: 10 0RF acetaminophen [Tylenol Extra Strength] 500 mg tablet 500 mg PO Q6H PRN (Reason: fever or pain) Qty: 14 0RF benzonatate 100 mg capsule 100 mg PO TID PRN (Reason: cough) Qty: 14 0RF fluticasone propionate [Flonase Allergy Relief] 50 mcg/actuation spray,suspension 2 spray intranasal DAILY Qty: 16 0RF Rx Instructions: administer into each nostril amoxicillin-pot clavulanate 875-125 mg tablet 1 tab PO BID 7 Days Qty: 14 0RF No Action lidocaine HCl [Aspercreme (lidocaine HCl)] 4 % cream 1 appl topical BID PRN (Reason: pain) Qty: 120 0RF ibuprofen 800 mg tablet 800 mg PO Q8H PRN (Reason: pain) Qty: 14 0RF hydrocodone-acetaminophen 5-325 mg tablet 1 tab PO Q8H PRN (Reason: pain) Qty: 10 0RF Rx Instructions: Patient may request partial fill amoxicillin-pot clavulanate 875-125 mg tablet 1 tab PO BID 7 Days Qty: 14 0RF ibuprofen 600 mg tablet 600 mg PO Q6H PRN (Reason: pain) Qty: 30 0RF diazepam [Valium] 5 mg tablet 5 mg PO TID PRN (Reason: muscle spasm) Qty: 10 0RF Rx Instructions: partial fill is okay lidocaine 5 % adhesive patch,medicated 1 patch topical DAILY Qty: 30 0RF Rx Instructions: leave on most painful area for up to 12 hrs <WAYNE Álvarez - Last Filed: 03/29/22 15:36> Referrals: Physician,None [Primary Care Provider] - 5 days <WAYNE Álvarez - Last Filed: 03/29/22 15:36> Interventions: ED Discharge Assessment Last Done: 03/29/22 18:27 <WAYNE Álvarez - Last Filed: 03/29/22 15:36> Discharge Date/Time: 03/29/22 18:29 <WAYNE Álvarez - Last Filed: 03/29/22 15:36> Print Language: Somali <WAYNE Álvarez - Last Filed: 03/29/22 15:36>
[2022-03-29 15:33] VITALS: BP 155/85; PULSE 87; RESP 18; TEMP 36.9; O2SAT 100; BMI 26.6
[2022-03-29 16:58] LABS: Influenza A PCR NEGATIVE (Negative); Influenza B PCR NEGATIVE (Negative); Resp Syncy Virus RNA Qual PCR NEGATIVE (Negative); SARS COV2 PCR INHOUSE NEGATIVE (Negative)
[2022-03-29 17:57] VITALS: BP 131/75; PULSE 78; RESP 16; TEMP 36.4; O2SAT 99
[2022-03-29] MEDS: Benzonatate 100 MG CAPSULE PO (18:21)
[2022-03-29] MEDS: Amoxicillin/Potassium Clav 875 MG TABLET PO (18:21)
[2022-03-29] MEDS: predniSONE 20 MG TABLET 40 MG PO (18:21)
== END 2022-03-29 18:29 | disposition home or self-care (01) ==
PROVIDERS: Physician Assistant Medical; Emergency Provider Internal Medicine
DX: J40 Bronchitis, not specified as acute or chronic (principal); H66.93 Otitis media, unspecified, bilateral; R05.9 Cough, unspecified; Z79.899 Other long term (current) drug therapy; Z20.822 Contact with and (suspected) exposure to COVID-19; Z20.828 Contact with and (suspected) exposure to other viral communicable diseases
CPT/HCPCS: 0241U; 71046; 99282; 99283

== ENCOUNTER 2022-04-10 13:15 | Emergency (ER) | payer OTHER, SELFPAY ==
[2022-04-10 13:32] VITALS: BP 151/87; PULSE 86; RESP 18; TEMP 36.6; O2SAT 99; BMI 27.3
--- NOTE | 2022-04-10 13:32 | ED.SKABFB ---
HPI - Skin/Abscess/Foreign Bdy General Chief complaint: General Medical <Iza Yadav CNP - Last Filed: 04/10/22 13:36> Stated complaint: rash <Iza Yadav CNP - Last Filed: 04/10/22 13:36> Time Seen by Provider: 04/10/22 13:50 <Iza Yadav CNP - Last Filed: 04/10/22 13:36> Source: patient <Era Glover NP - Last Filed: 04/10/22 14:57> Mode of arrival: ambulatory <Era Glover NP - Last Filed: 04/10/22 14:57> Limitations: no limitations <Era Glover NP - Last Filed: 04/10/22 14:57> History of Present Illness HPI narrative: 31-year-old female currently on Tamiflu for influenza, recent antibiotic for bronchitis presents with concern of itching area around her clitorus noted last night. No associated pain or burning. No urinary symptoms, abdominal pain, fever, back pain. No vomiting. Patient denies any new sexual partners. <Era Glover NP - Last Filed: 04/10/22 14:57> Related Data Home medications: Previous Rx's Medication Instructions Recorded hydrocodone 5 mg-acetaminophen 325 1 tab PO Q8H PRN pain #10 tabs 12/30/20 mg tablet ibuprofen 800 mg tablet 800 mg PO Q8H PRN pain #14 tabs 12/30/20 lidocaine HCl 4 % topical cream 1 appl topical BID PRN pain #120 12/30/20 (Aspercreme (lidocaine HCl)) grams amoxicillin 875 mg-potassium 1 tab PO BID 7 days #14 tabs 07/07/21 clavulanate 125 mg tablet diazepam 5 mg tablet (Valium) 5 mg PO TID PRN muscle spasm #10 12/04/21 tabs ibuprofen 600 mg tablet 600 mg PO Q6H PRN pain #30 tabs 12/04/21 lidocaine 5 % topical patch 1 patch topical DAILY #30 ea 12/04/21 acetaminophen 500 mg tablet 500 mg PO Q6H PRN fever or pain 03/29/22 (Tylenol Extra Strength) #14 tabs amoxicillin 875 mg-potassium 1 tab PO BID 7 days #14 tabs 03/29/22 clavulanate 125 mg tablet benzonatate 100 mg capsule 100 mg PO TID PRN cough #14 caps 03/29/22 fluticasone propionate 50 2 spray intranasal DAILY #16 grams 03/29/22 mcg/actuation nasal spray,suspension (Flonase Allergy Relief) prednisone 20 mg tablet 40 mg PO DAILY 5 days #10 tabs 03/29/22 clotrimazole 1 % vaginal cream 1 appful vaginal BEDTIME #45 grams 04/10/22 fluconazole 150 mg tablet 150 mg PO Q3D 2 doses #2 tabs 04/10/22 (Diflucan) <Iza Yadav CNP - Last Filed: 04/10/22 13:36> Allergies/Adverse reactions: Allergies Allergy/AdvReac Type Severity Reaction Status Date / Time No Known Allergies Allergy Verified 07/07/21 08:35 <Iza Yadav CNP - Last Filed: 04/10/22 13:36> Review of Systems Review of Systems: Yes all other systems are reviewed and are negative <Era Glover NP - Last Filed: 04/10/22 14:57> Constitutional: Constitutional: Reports no additional constitutional complaints, Denies body ache(s), Denies chills, Denies fever(s), Denies headache(s) and Denies weakness <Era Glover NP - Last Filed: 04/10/22 14:57> Eyes: Eyes: Reports no additional eye complaints and Denies change in vision <Era Glover NP - Last Filed: 04/10/22 14:57> ENT: Reports system reviewed and no additional complaints, except as documented, Denies dizziness, Denies headache(s), Denies nasal congestion, Denies nasal discharge and Denies neck pain <Era Glover NP - Last Filed: 04/10/22 14:57> Cardiovascular: Cardiovascular: Reports no additional cardiovascular complaints, Denies chest pain, Denies leg edema and Denies dyspnea <Era Glover NP - Last Filed: 04/10/22 14:57> Respiratory: Respiratory: Reports no additional respiratory complaints, Denies cough and Denies dyspnea <Era Glover NP - Last Filed: 04/10/22 14:57> Gastrointestinal: Gastrointestinal: Reports no additional gastrointestinal complaints, Denies abdominal pain, Denies diarrhea, Denies nausea and Denies vomiting <Era Glover NP - Last Filed: 04/10/22 14:57> Genitourinary: Genitourinary: Reports no additional female genitourinary complaints and Denies urinary incontinence <Era Glover NP - Last Filed: 04/10/22 14:57> Musculoskeletal: Musculoskeletal: Reports no additional musculoskeletal complaints, Denies back pain, Denies arthralgias, Denies joint swelling, Denies neck pain, Denies numbness and Denies tingling <Era Glover NP - Last Filed: 04/10/22 14:57> Integumentary/Breasts: Skin/Breast: Reports system reviewed and no additional complaints, except as docu and Denies rash <Era Glover NP - Last Filed: 04/10/22 14:57> Neurologic: Reports system reviewed and no additional complaints, except as documented, Denies Abnormal speech present, Denies dizziness, Denies headache(s), Denies numbness, Denies tingling and Denies weakness <Era Glover NP - Last Filed: 04/10/22 14:57> [facility] Past Medical History Attestation statement: The following information was validated with the patient. <Era Glover NP - Last Filed: 04/10/22 14:57> Source: old records reviewed and nursing notes reviewed <Era lGover NP - Last Filed: 04/10/22 14:57> Medical History: Medical History Ear infection <Iza Yadav CNP - Last Filed: 04/10/22 13:36> Social History Social History: Social History Patient Tobacco Use Status: Current everyday Tobacco user Advance Directives: No <Iza Yadav CNP - Last Filed: 04/10/22 13:36> Physical Exam Vital Signs: Vital Signs: Last Vital Signs Temp 98.0 F 04/10/22 14:44 Pulse 76 04/10/22 14:44 Resp 16 04/10/22 14:44 BP 124/68 04/10/22 14:44 Pulse Ox 99 04/10/22 14:44 O2 Del Method 04/10/22 14:44 BMI result Body Mass Index 27.3 <Iza Yadav CNP - Last Filed: 04/10/22 13:36> Vital Signs: Last Vital Signs Temp 98.0 F 04/10/22 14:44 Pulse 76 04/10/22 14:44 Resp 16 04/10/22 14:44 BP 124/68 04/10/22 14:44 Pulse Ox 99 04/10/22 14:44 O2 Del Method 04/10/22 14:44 BMI result Body Mass Index 27.3 <Era Glover NP - Last Filed: 04/10/22 14:57> Vital Signs: Last Vital Signs Temp 98.0 F 04/10/22 14:44 Pulse 76 04/10/22 14:44 Resp 16 04/10/22 14:44 BP 124/68 04/10/22 14:44 Pulse Ox 99 04/10/22 14:44 O2 Del Method 04/10/22 14:44 BMI result Body Mass Index 27.3 <Shyam Voss MD - Last Filed: 04/10/22 16:20> Const: General: cooperative, healthy appearing, comfortable and no acute distress <Era Glover NP - Last Filed: 04/10/22 14:57> Orientation/consciousness: patient oriented x3 <Era Glover NP - Last Filed: 04/10/22 14:57> Limitations: no limitations <Era Glover NP - Last Filed: 04/10/22 14:57> HEENT: Head: Yes normal to inspection <Era Glover NP - Last Filed: 04/10/22 14:57> Ears: hearing grossly normal bilaterally <Era Glover NP - Last Filed: 04/10/22 14:57> General nose exam: Normal external nose present <Era Glover NP - Last Filed: 04/10/22 14:57> Face and sinus: Yes normal facial exam <Era Glover DIST[employer]BUTION ENGINEERING TECHNOLOGIST - Last Filed: 04/10/22 14:57> Mouth: Normal oral and palatal mucosa present <Era Glover DISTRI[employer]ION ENGINEERING TECHNOLOGIST - Last Filed: 04/10/22 14:57> Throat: Yes posterior oropharynx normal <Era Glover DISTRIBUTION ENGINEERING TECHNOLOGIST - Last Filed: 04/10/22 14:57> Eyes: General: appearance normal, both eyes and all related structures <Era Glover DISTRIBUTION ENGINEERING TECHNOLOGIST - Last Filed: 04/10/22 14:57> Pupils: Equal, round and reactive pupils present <Era Glover DISTRIBUTION ENGINEERING TECHNOLOGIST - Last Filed: 04/10/22 14:57> Neck: Neck: Yes normal visual inspection <Era Glover DISTRIBUTION ENGINEERING TECHNOLOGIST - Last Filed: 04/10/22 14:57> Chest: Chest palpation & inspection: normal inspection of the chest <Era Glover DISTRIBUTION ENGINEERING TECHNOLOGIST - Last Filed: 04/10/22 14:57> Resp: Effort & Inspection: normal respiratory effort <Era Glover DISTRIBUTION ENGINEERING TECHNOLOGIST - Last Filed: 04/10/22 14:57> Auscultation: clear to auscultation bilaterally <Era Glover DISTRIBUTION ENGINEERING TECHNOLOGIST - Last Filed: 04/10/22 14:57> Cardio: Rate: regular rate <Era Glover DISTRIBUTION ENGINEERING TECHNOLOGIST - Last Filed: 04/10/22 14:57> Rhythm: regular rhythm <Era Glover DISTRIBUTION ENGINEERING TECHNOLOGIST - Last Filed: 04/10/22 14:57> Peripheral pulses: Peripheral pulses 2+ throughout <Era Glover DISTRIBUTION ENGINEERING TECHNOLOGIST - Last Filed: 04/10/22 14:57> GI: Inspection: Yes normal to inspection <Era Glover DISTRIBUTION ENGINEERING TECHNOLOGIST - Last Filed: 04/10/22 14:57> Palpation (GI): Soft to palpation and nontender <Era Glover DISTRIBUTION ENGINEERING TECHNOLOGIST - Last Filed: 04/10/22 14:57> Auscultation: normal bowel sounds <Era Glover DISTRIBUTION ENGINEERING TECHNOLOGIST - Last Filed: 04/10/22 14:57> : Other: Helen tech him clerk Pelvic deferred <Era Glover DISTRIBUTION ENGINEERING TECHNOLOGIST - Last Filed: 04/10/22 14:57> External Female Exam: other (Around the clitoris there is excoriation, swelling, erythema. No vesicles) <Era Glover DISTRIBUTION ENGINEERING TECHNOLOGIST - Last Filed: 04/10/22 14:57> Back/Spine/Pelvis: Thoracic/Lumbar Spine: thoracic and lumbar spine normal to inspection <Era Glover DISTRIBUTION ENGINEERING TECHNOLOGIST - Last Filed: 04/10/22 14:57> Skin: General skin exam: no rashes or lesions noted <Era Glover DISTRIBUTION ENGINEERING TECHNOLOGIST - Last Filed: 04/10/22 14:57> Neuro: General: patient oriented x3, no focal motor deficits and normal sensation to monofilament <Era Glover, DISTRIBUTION ENGINEERING TECHNOLOGIST - Last Filed: 04/10/22 14:57> Cranial nerves: Yes Equal, round and reactive pupils present <Era Glover DISTRIBUTION ENGINEERING TECHNOLOGIST - Last Filed: 04/10/22 14:57> Cognition (Neuro): normal cognition <Era Glover DISTRIBUTION ENGINEERING TECHNOLOGIST - Last Filed: 04/10/22 14:57> Speech: No Abnormal speech present <Era Glover DISTRIBUTION ENGINEERING TECHNOLOGIST - Last Filed: 04/10/22 14:57> Gait exam (Neuro): Normal gait present <Era Glover DISTRIBUTION ENGINEERING TECHNOLOGIST - Last Filed: 04/10/22 14:57> Motor exam (neuro): 5/5 motor strength present throughout <Era Glover DISTRIBUTION ENGINEERING TECHNOLOGIST - Last Filed: 04/10/22 14:57> Extrem: General: Yes normal to inspection <Era Glover, DISTRIBUTION ENGINEERING TECHNOLOGIST - Last Filed: 04/10/22 14:57> Course Course Course Narrative: This is an RME: Additional HPI, ROS, PE not included below will be deferred to primary provider. Patient is a 31-year-old female who presents to the ED for evaluation of a rash. Onset noticed last night, states it is present to her vagina, skin is peeling off with presence of white bumps. She does reports last week ago she was prescribed amoxicillin for bronchitis, has completed the course. Dneies lesions to mouth, or rash present elsewhere on body. Also states she was positive for influenza positive days ago, currently on Tamiflu. <Iza Yadav CNP - Last Filed: 04/10/22 13:36> Medical Decision Making Medical Decision Making [facility] Narrative: 31-year-old female recently treated for both influenza and bronchitis with antivirals and antibiotics presents with itching area around the clitoris. Exam is not consistent with herpetic lesions. There is some excoriation, swelling, tenderness around the clitorus more likely secondary to vaginitis. No recent unprotected sex. No new sexual partners. Discussed with patient. Will send testing for Trichomonas, BV, Kate, herpes, gonorrhea and chlamydia. Low concern for STI Patient will be treated prophylactically for vaginitis <Era Glover NP - Last Filed: 04/10/22 14:57> Differential Diagnosis Differential Diagnoses: The differential diagnosis associated with the presentation includes <Era Glover NP - Last Filed: 04/10/22 14:57> vaginitis, herpes, sti <Era Glover NP - Last Filed: 04/10/22 14:57> Lab Data [facility] Lab Attestation statement: I reviewed the patient's lab results. <Era Glover NP - Last Filed: 04/10/22 14:57> Labs: Lab Results 04/10/22 04/10/22 Range/Units 14:22 14:22 Urine Color Yellow Urine Appearance Clear Urine pH 6.0 (5.0-9.0) Ur Specific [place] 1.015 (1.005-1.025) Urine Protein Negative (Neg-Trace) mg/dL Urine Glucose (UA) Negative (Negative) mg/dL Urine Ketones Negative (Negative) mg/dL Urine Blood Negative (Negative) Urine Nitrite Negative (Negative) Ur Leukocyte Esterase Negative (Negative) Urine Test NEGATIVE (NEGATIVE) <Iza Yadav CNP - Last Filed: 04/10/22 13:36> Lab Results 04/10/22 04/10/22 Range/Units 14:22 14:22 Urine Color Yellow Urine Appearance Clear Urine pH 6.0 (5.0-9.0) Ur Specific [place] 1.015 (1.005-1.025) Urine Protein Negative (Neg-Trace) mg/dL Urine Glucose (UA) Negative (Negative) mg/dL Urine Ketones Negative (Negative) mg/dL Urine Blood Negative (Negative) Urine Nitrite Negative (Negative) Ur Leukocyte Esterase Negative (Negative) Urine Test NEGATIVE (NEGATIVE) <Era Glover NP - Last Filed: 04/10/22 14:57> Lab Results 04/10/22 04/10/22 Range/Units 14:22 14:22 Urine Color Yellow Urine Appearance Clear Urine pH 6.0 (5.0-9.0) Ur Specific [place] 1.015 (1.005-1.025) Urine Protein Negative (Neg-Trace) mg/dL Urine Glucose (UA) Negative (Negative) mg/dL Urine Ketones Negative (Negative) mg/dL Urine Blood Negative (Negative) Urine Nitrite Negative (Negative) Ur Leukocyte Esterase Negative (Negative) Urine Test NEGATIVE (NEGATIVE) <Shyam Voss MD - Last Filed: 04/10/22 16:20> Attestation Attending Attestation: I personally reviewed PA/resident/nurse practitioner note. I reviewed a all results and treatment plan. I agree with the assessment and plan. I agree with disposition <Shyam Voss MD - Last Filed: 04/10/22 16:20> Discharge Plan Discharge Clinical Impression: Vaginitis <Iza Yadav CNP - Last Filed: 04/10/22 13:36> Patient Disposition: Home, Self-Care <Iza Yadav CNP - Last Filed: 04/10/22 13:36> Instructions: Yeast Infection (ED) <Iza Yadav CNP - Last Filed: 04/10/22 13:36> Additional Instructions: We did send testing for STDs as well as common vaginal infections in women. These test take several days to come back. We will only call you if they are positive in you need additional treatment. <Iza Yadav CNP - Last Filed: 04/10/22 13:36> Prescriptions: New fluconazole [Diflucan] 150 mg tablet 150 mg PO Q3D Qty: 2 0RF clotrimazole 1 % cream 1 appful vaginal BEDTIME Qty: 45 0RF No Action lidocaine HCl [Aspercreme (lidocaine HCl)] 4 % cream 1 appl topical BID PRN (Reason: pain) Qty: 120 0RF ibuprofen 800 mg tablet 800 mg PO Q8H PRN (Reason: pain) Qty: 14 0RF hydrocodone-acetaminophen 5-325 mg tablet 1 tab PO Q8H PRN (Reason: pain) Qty: 10 0RF Rx Instructions: Patient may request partial fill amoxicillin-pot clavulanate 875-125 mg tablet 1 tab PO BID 7 Days Qty: 14 0RF prednisone 20 mg tablet 40 mg PO DAILY 5 Days Qty: 10 0RF acetaminophen [Tylenol Extra Strength] 500 mg tablet 500 mg PO Q6H PRN (Reason: fever or pain) Qty: 14 0RF benzonatate 100 mg capsule 100 mg PO TID PRN (Reason: cough) Qty: 14 0RF fluticasone propionate [Flonase Allergy Relief] 50 mcg/actuation spray,suspension 2 spray intranasal DAILY Qty: 16 0RF Rx Instructions: administer into each nostril amoxicillin-pot clavulanate 875-125 mg tablet 1 tab PO BID 7 Days Qty: 14 0RF ibuprofen 600 mg tablet 600 mg PO Q6H PRN (Reason: pain) Qty: 30 0RF diazepam [Valium] 5 mg tablet 5 mg PO TID PRN (Reason: muscle spasm) Qty: 10 0RF Rx Instructions: partial fill is okay lidocaine 5 % adhesive patch,medicated 1 patch topical DAILY Qty: 30 0RF Rx Instructions: leave on most painful area for up to 12 hrs <Iza Yadav CNP - Last Filed: 04/10/22 13:36> Referrals: Physician,None [Primary Care Provider] - <Iza Yadav CNP - Last Filed: 04/10/22 13:36> Interventions: ED Discharge Assessment Last Done: 04/10/22 14:48 <Iza Yadav CNP - Last Filed: 04/10/22 13:36> Discharge Date/Time: 04/10/22 14:49 <Iza Yadav CNP - Last Filed: 04/10/22 13:36>
[2022-04-10 14:37] LABS: Appearance Urine Clear; Color Urine Yellow; Glucose Urine UA Negative (Negative); Leukocyte Esterase Urine Negative (Negative); Nitrite Urine Negative (Negative); Specific Gravity - Urine 1.015 (1.005-1.025); Urine Blood Negative (Negative); Urine Ketones Negative (Negative); Urine Protein Negative (Neg-Trace)
[2022-04-10 14:39] LABS: UPreg QC Valid YES; Urine Pregnancy NEGATIVE (NEGATIVE)
[2022-04-10 14:44] VITALS: BP 124/68; PULSE 76; RESP 16; TEMP 36.7; O2SAT 99
[2022-04-10 17:10] LABS: CT PCR NOT DETECTED (Not Detect.); NG PCR NOT DETECTED (Not Detect.)
[2022-04-11 13:30] LABS: BV Int Neg Control Negative (Negative); BV Int Pos Control Positive (Positive)
== END 2022-04-10 14:49 | disposition home or self-care (01) ==
PROVIDERS: Nurse Practitioner Family; Emergency Provider Emergency Medicine
DX: N76.0 Acute vaginitis (principal)
CPT/HCPCS: 0353U; 36415; 81003; 81025; 87255; 87480; 87510; 87660; 99283; 99284

== ENCOUNTER 2022-08-31 14:31 | Emergency (ER) | payer OTHER, SELFPAY ==
--- NOTE | ~2022-08-31 | XR_ITS ---
EXAMINATION: XR LUMBOSACRAL SPINE CLINICAL INFORMATION: Back pain COMPARISON: None available. TECHNIQUE: Three views of the lumbosacral spine. FINDINGS: The vertebral bodies and posterior elements are normal. The disc spaces are preserved and the vertebral alignment is normal. The paraspinal soft tissues are normal. XR/XR lumbar spine 2-3V IMPRESSION: Unremarkable examination.
[2022-08-31 14:33] VITALS: BP 133/73; PULSE 79; RESP 17; TEMP 36.6; O2SAT 98; BMI 29.0
--- NOTE | 2022-08-31 14:34 | ED_ITS ---
HPI - Extremity Injury (Lower) General Chief Complaint: Back Pain/Injury Stated Complaint: Lower back inj/Work related Time Seen by Provider: 08/31/22 15:17 Source: patient Mode of arrival: ambulatory Limitations: no limitations History of Present Illness HPI Narrative: This is a 32 year old female presenting to the emergency department for evaluation of left-sided lower back pain that radiates into left lower extremity to below the knee. Patient reports back pain started prior to arrival and was a work related injury. Patient reports a resident was about to fall, she went to catch them, the resident fell into her arms however both the patient and resident fell. The patient reports falling onto her knees and immediately had left-sided lower back pain after the incident. Since then she has been having left lower back pain that radiates into left lower extremity. She denies head strike or loss of consciousness from fall. Patient denies previous back history. Patient reports pain is worse with movement and better at rest. Patient denies fevers, chills, and nausea. vomiting, abdominal pain, headache, vision changes, dizziness, weakness, saddle paresthesias, urine or bowel incontinence / retention. Related Data Previous Rx's Medication Instructions Recorded hydrocodone 5 mg-acetaminophen 325 1 tab PO Q8H PRN pain #10 tabs 12/30/20 mg tablet ibuprofen 800 mg tablet 800 mg PO Q8H PRN pain #14 tabs 12/30/20 lidocaine HCl 4 % topical cream 1 appl topical BID PRN pain #120 12/30/20 (Aspercreme (lidocaine HCl)) grams amoxicillin 875 mg-potassium 1 tab PO BID 7 days #14 tabs 07/07/21 clavulanate 125 mg tablet diazepam 5 mg tablet (Valium) 5 mg PO TID PRN muscle spasm #10 12/04/21 tabs ibuprofen 600 mg tablet 600 mg PO Q6H PRN pain #30 tabs 12/04/21 lidocaine 5 % topical patch 1 patch topical DAILY #30 ea 12/04/21 acetaminophen 500 mg tablet 500 mg PO Q6H PRN fever or pain 03/29/22 (Tylenol Extra Strength) #14 tabs amoxicillin 875 mg-potassium 1 tab PO BID 7 days #14 tabs 03/29/22 clavulanate 125 mg tablet benzonatate 100 mg capsule 100 mg PO TID PRN cough #14 caps 03/29/22 fluticasone propionate 50 2 spray intranasal DAILY #16 grams 03/29/22 mcg/actuation nasal spray,suspension (Flonase Allergy Relief) prednisone 20 mg tablet 40 mg PO DAILY 5 days #10 tabs 03/29/22 clotrimazole 1 % vaginal cream 1 appful vaginal BEDTIME #45 grams 04/10/22 fluconazole 150 mg tablet 150 mg PO Q3D 2 doses #2 tabs 04/10/22 (Diflucan) cyclobenzaprine 10 mg tablet 10 mg PO BEDTIME PRN muscle spasm 08/31/22 #7 tabs ketorolac 10 mg tablet 10 mg PO TID PRN pain 5 days #15 08/31/22 tabs lidocaine 5 % topical patch 1 patch topical DAILY PRN pain #15 08/31/22 ea Allergies Allergy/AdvReac Type Severity Reaction Status Date / Time No Known Allergies Allergy Verified 08/31/22 14:33 Review of Systems Review of Systems: Constitutional : No Weight loss, No Fever, No Chills, ENT/Mouth : No Hearing loss, No Ear Pain, No Nasal Congestion, No Sinus Pain, No Hoarseness, No sore throat, No Rhinorrhea, No Swallowing Difficulty Cardiovascular : No Chest Pain, No SOB Respiratory : No Cough, No Dyspnea Gastrointestinal : No Nausea, No Vomiting, No Diarrhea, No abdominal Pain, No Hematochezia, No Melena Genitourinary : No Dysuria, No Urinary Frequency, No Hematuria, No Urinary Incontinence, Musculoskeletal : positive back pain Skin : No Skin Lesions, No rash Neuro : No Weakness, No Numbness, No Paresthesias, no loss of bowel or bladder incontinence, no saddle anesthesia Yes all other systems are reviewed and are negative [facility] Past Medical History Attestation statement: The following information was validated with the patient. Source: old records reviewed and nursing notes reviewed Medical History Ear infection Social History Social History Patient Tobacco Use Status: Current everyday Tobacco user Advance Directives: No Advance Directives Information Provided: Yes Physical Exam Vital Signs: Vital Signs: Last Vital Signs Temp 98 F 08/31/22 14:33 Pulse 79 08/31/22 14:33 Resp 17 08/31/22 14:33 BP 133/73 08/31/22 14:33 Pulse Ox 98 08/31/22 14:33 O2 Del Method Room Air 08/31/22 14:33 BMI result Body Mass Index 29.0 Vital signs stable Appearance: Alert.? Oriented X3.? No acute distress.? Head: Normocephalic, atraumatic, no step-offs or deformities Eyes: Pupils equal, round and reactive to light.? CVS: Normal heart rate and rhythm.? Pulses normal.? Respiratory: No respiratory distress.? Breath sounds normal.? Abdomen: Soft and nontender.? Skin: Skin warm and dry.? Normal skin color.? Normal skin turgor.? Extremities: No lower extremity edema.? No calf ttp. 5/5 strength to bilateral upper and lower extremities Back: No midline tenderness, no C-spine tenderness, full range of motion, no CVA tenderness bilaterally + left-sided paraspinal MSK tenderness noted. + left straight leg raise Neuro: Oriented X 3.? No motor deficit.? No sensory deficit. CN 2-12 intact no saddle paresthesias, ambulatory steady gait normal coordination. 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 Denies direct injury incontinence/retention, fever + left-sided paraspinal MSK tenderness noted. Ambulating with steady gait Lumbar x-ray, Toradol, Flexeril, Lidoderm patch ordered Full HPI, ROS and PE to be performed by primary ED provider. Reevaluation(s) Reevaluation #1: Patient reports she is feeling better after Toradol, cyclobenzaprine and Lidoderm patch. Will discharge her home with same. No red flag symptoms of back pain. Educated patient on diagnosis and treatment plan, answered all question, patient verbalizes understanding. At this time patient will be discharged home, advised to return with new or worsening symptoms. Educated on worrisome signs and symptoms and when to return. At this time I feel comfortable discharge home. Time: 15:58 Medications Administered Discontinued Medications Generic Name Dose Route Start Last Admin Trade Name Freq PRN Reason Stop Dose Admin Cyclobenzaprine HCl 10 mg 08/31/22 14:36 08/31/22 14:56 Cyclobenzaprine Hcl 10 Mg Tablet PO 08/31/22 14:37 10 mg ONCE ONE Administration Ketorolac Tromethamine 30 mg 08/31/22 14:36 08/31/22 14:56 Ketorolac Tromethamine 30 Mg/Ml Vial IM 08/31/22 14:37 30 mg ONCE ONE Administration Lidocaine 1 patch 08/31/22 14:49 08/31/22 14:55 Lidocaine 4 % Patch Adh..Patch TRANSDERMA 08/31/22 14:50 1 patch ONCE ONE Administration Protocol Medical Decision Making Medical Decision Making MDM Narrative: 32-year-old female presents with left lower back pain radiating to left lower extremity status post catching a resident at her job . No red flag symptoms. Physical exam significant for + left-sided paraspinal MSK tenderness noted. + left straight leg raise likely lumbar radiculopathy versus sciatica. Unlikely cauda equina, epidural abscess or cord compression. Plan imaging. Differential Diagnosis Differential Diagnoses: The differential diagnosis associated with the presentation includes likely lumbar radiculopathy versus sciatica. Unlikely cauda equina, epidural abscess or cord compression. Admission/Observation Consideration of admission/observation: Escalation of care including admiss ion/observation considered Independent Interpretation I performed an independent interpretation of an: Plain X-Ray Radiology Impression Discussion of test interpretation with radiology: I have reviewed the radiologist's reading. Core Measures AMI core measures followed: Yes Measure exclusions: not indicated Critical Care Time Critical Care Time Critical Care Time: No Discharge Plan Discharge Clinical Impression: Lumbar radiculopathy, Work related injury Patient Disposition: Home, Self-Care Instructions: Lumbar Radiculopathy (ED), Back Pain (ED) Additional Instructions: Take your medications as prescribed. If you were prescribed antibiotics today, it is important that you take your medication to their entirety, do not skip any doses, do not finish them early. Follow-up with your primary care provider this week. Follow up with the work connection as this was work related. Return to the emergency department with new or worsening symptoms. Such as fevers, chills, chest pain, shortness of breath, nausea, vomiting, dizziness, headache, vision changes, lethargy In case of emergency call 911 Toradol has been sent to your pharmacy, you tolerated this well in the department. Please take this as prescribed do not take this with ibuprofen, or other NSAIDs, do not mix this with alcohol. Side effects of this medication including increased risk for bleeding and possible kidney injury. Prescriptions: New cyclobenzaprine 10 mg tablet 10 mg PO BEDTIME PRN (Reason: muscle spasm) Qty: 7 0RF ketorolac 10 mg tablet 10 mg PO TID PRN (Reason: pain) 5 Days Qty: 15 0RF lidocaine 5 % adhesive patch,medicated 1 patch topical DAILY PRN (Reason: pain) Qty: 15 0RF Rx Instructions: leave on most painful area for up to 12 hrs No Action lidocaine HCl [Aspercreme (lidocaine HCl)] 4 % cream 1 appl topical BID PRN (Reason: pain) Qty: 120 0RF ibuprofen 800 mg tablet 800 mg PO Q8H PRN (Reason: pain) Qty: 14 0RF hydrocodone-acetaminophen 5-325 mg tablet 1 tab PO Q8H PRN (Reason: pain) Qty: 10 0RF Rx Instructions: Patient may request partial fill amoxicillin-pot clavulanate 875-125 mg tablet 1 tab PO BID 7 Days Qty: 14 0RF prednisone 20 mg tablet 40 mg PO DAILY 5 Days Qty: 10 0RF acetaminophen [Tylenol Extra Strength] 500 mg tablet 500 mg PO Q6H PRN (Reason: fever or pain) Qty: 14 0RF benzonatate 100 mg capsule 100 mg PO TID PRN (Reason: cough) Qty: 14 0RF fluticasone propionate [Flonase Allergy Relief] 50 mcg/actuation spray,suspension 2 spray intranasal DAILY Qty: 16 0RF Rx Instructions: administer into each nostril amoxicillin-pot clavulanate 875-125 mg tablet 1 tab PO BID 7 Days Qty: 14 0RF ibuprofen 600 mg tablet 600 mg PO Q6H PRN (Reason: pain) Qty: 30 0RF diazepam [Valium] 5 mg tablet 5 mg PO TID PRN (Reason: muscle spasm) Qty: 10 0RF Rx Instructions: partial fill is okay lidocaine 5 % adhesive patch,medicated 1 patch topical DAILY Qty: 30 0RF Rx Instructions: leave on most painful area for up to 12 hrs fluconazole [Diflucan] 150 mg tablet 150 mg PO Q3D Qty: 2 0RF clotrimazole 1 % cream 1 appful vaginal BEDTIME Qty: 45 0RF Referrals: Physician,None [Primary Care Provider] - 2 days Stand Alone Forms: Work/School Release
[2022-08-31] MEDS: Lidocaine 4 % Patch ADH..PATCH 1 PATCH TRANSDERMA (14:55)
[2022-08-31] MEDS: Ketorolac Tromethamine 30 MG/ML VIAL IM (14:56)
[2022-08-31] MEDS: Cyclobenzaprine HCl 10 MG TABLET PO (14:56)
--- NOTE | 2022-08-31 15:02 | PC.NURSE ---
pt medicated per MAR
== END 2022-08-31 16:12 | disposition home or self-care (01) ==
PROVIDERS: Emergency Provider Emergency Medicine
DX: Z04.2 Encounter for examination and observation following work accident (principal); M54.16 Radiculopathy, lumbar region; M54.50 Low back pain, unspecified
CPT/HCPCS: 72100; 96372; 99283; 99284; J1885

== ENCOUNTER 2022-09-10 11:15 | Emergency (ER) | payer OTHER, SELFPAY ==
[2022-09-10 11:18] VITALS: BP 136/76; PULSE 98; RESP 18; TEMP 36.7; O2SAT 99; BMI 27.4
--- NOTE | 2022-09-10 11:20 | ED.GENADULT ---
HPI - General Adult General Chief complaint: Upper Respiratory Symptoms Stated complaint: infection in throat Time Seen by Provider: 09/10/22 13:02 Source: patient, RN notes reviewed and old records reviewed Mode of arrival: ambulatory History of Present Illness HPI narrative: 32-year-old female with no significant past medical history presenting to the ED complaining of sore throat, right-sided ear pain, nasal congestion and sinus pressure since yesterday. Also reports fever T-max 101 degrees yesterday and chills. Denies cough, SOB/CP, drainage from the ear, hearing loss, difficulty or inability to swallow Onset (ago): day(s) Related Data Previous Rx's Medication Instructions Recorded hydrocodone 5 mg-acetaminophen 325 1 tab PO Q8H PRN pain #10 tabs 12/30/20 mg tablet ibuprofen 800 mg tablet 800 mg PO Q8H PRN pain #14 tabs 12/30/20 lidocaine HCl 4 % topical cream 1 appl topical BID PRN pain #120 12/30/20 (Aspercreme (lidocaine HCl)) grams amoxicillin 875 mg-potassium 1 tab PO BID 7 days #14 tabs 07/07/21 clavulanate 125 mg tablet diazepam 5 mg tablet (Valium) 5 mg PO TID PRN muscle spasm #10 12/04/21 tabs ibuprofen 600 mg tablet 600 mg PO Q6H PRN pain #30 tabs 12/04/21 lidocaine 5 % topical patch 1 patch topical DAILY #30 ea 12/04/21 acetaminophen 500 mg tablet 500 mg PO Q6H PRN fever or pain 03/29/22 (Tylenol Extra Strength) #14 tabs amoxicillin 875 mg-potassium 1 tab PO BID 7 days #14 tabs 03/29/22 clavulanate 125 mg tablet benzonatate 100 mg capsule 100 mg PO TID PRN cough #14 caps 03/29/22 fluticasone propionate 50 2 spray intranasal DAILY #16 grams 03/29/22 mcg/actuation nasal spray,suspension (Flonase Allergy Relief) prednisone 20 mg tablet 40 mg PO DAILY 5 days #10 tabs 03/29/22 clotrimazole 1 % vaginal cream 1 appful vaginal BEDTIME #45 grams 04/10/22 fluconazole 150 mg tablet 150 mg PO Q3D 2 doses #2 tabs 04/10/22 (Diflucan) cyclobenzaprine 10 mg tablet 10 mg PO BEDTIME PRN muscle spasm 08/31/22 #7 tabs ketorolac 10 mg tablet 10 mg PO TID PRN pain 5 days #15 08/31/22 tabs lidocaine 5 % topical patch 1 patch topical DAILY PRN pain #15 08/31/22 ea amoxicillin 875 mg-potassium 1 tab PO BID 7 days #14 tabs 09/10/22 clavulanate 125 mg tablet fluticasone propionate 50 2 spray intranasal DAILY #16 grams 09/10/22 mcg/actuation nasal spray,suspension (Flonase Allergy Relief) Allergies Allergy/AdvReac Type Severity Reaction Status Date / Time No Known Allergies Allergy Verified 08/31/22 14:33 Review of Systems Review of Systems: Constitutional: + Fever, + Chills ENT/Mouth: + Ear Pain, + Nasal Congestion, + Sinus Pain, No Hoarseness, + sore throat, + Rhinorrhea, No Swallowing Difficulty Cardiovascular: No Chest Pain, No SOB Respiratory: No Cough, No Sputum, No Wheezing Gastrointestinal: No Nausea, No Vomiting, No Diarrhea, No Constipation, No Abdominal pain Musculoskeletal: No joint pain, No Myalgias, No Joint Swelling Skin: No Skin Lesions, No rash Neuro: No Weakness Yes all other systems are reviewed and are negative Constitutional: Constitutional: Reports as per [facility] Past Medical History Attestation statement: The following information was validated with the patient. Source: old records reviewed Medical History Ear infection Social History Social History Alcohol intake: never Patient Tobacco Use Status: Current everyday Tobacco user Smoked in Last 30 Days: No Use of substances other than those prescribed or required for medical reasons: No Advance Directives: No Advance Directives Information Provided: Yes Physical Exam ED Vital Signs: Vital Signs - 24 hr 09/10/22 11:18 09/10/22 13:56 Temperature 98.1 F Pulse Rate 98 65 Respiratory Rate 18 19 Blood Pressure 136/76 125/89 Pulse Oximetry 99 99 Oxygen Delivery Method Room Air Room Air BMI result Body Mass Index 27.4 Const General: cooperative, healthy appearing and no acute distress Orientation/consciousness: patient oriented x3 Limitations: no limitations HENMT Head: Yes normal to inspection and Yes atraumatic Ears: hearing grossly normal bilaterally, external ears normal and TM abnormal dull on the right and erythematous on the right General nose exam: Normal external nose present Face and sinus: Yes normal facial exam, No crepitus and Yes Facial tenderness on exam of face and sinuses (Maxillary and ethmoid) Throat: Yes posterior oropharynx normal, Yes uvula midline, Yes abnormal tonsil (Right tonsil with mild swelling, no exudates), No peritonsillar mass, No uvula laterally displaced and No uvular edema Eyes General: appearance normal, both eyes and all related structures EOM: EOMs intact bilaterally Neck Neck: Yes normal visual inspection, Yes no meningeal signs, Yes supple, No anterior neck swelling and No torticollis Resp Effort & Inspection: normal respiratory effort, not labored, no respiratory distress and no stridor Cardio Rate: regular rate Skin Rashes: no rashes Wounds: no wounds Neuro General: patient oriented x3, tone normal and no meningeal signs Gait exam (Neuro): Normal gait present Extrem General: Yes normal to inspection Course Course Course Narrative: This is an RME: Additional HPI, ROS, PE not included below will be deferred to primary provider. This is a [id number] presenting to the emergency department for evaluation of sore throat and right ear pain since yesterday. Oropharynx is mildly erythematous, airways patent. All vital signs within normal limits. Plan: Strep test -rapid strep negative Results discussed with patient including worrisome signs and symptoms and strict return precautions, and when to return to the emergency department. They verbalized understanding and feel safe for discharge at this time. Medical Decision Making Medical Decision Making MDM Narrative: 32-year-old female with no significant past medical history presenting to the ED complaining of sore throat, right-sided ear pain, nasal congestion and sinus pressure since yesterday. On exam vital signs stable, NAD, nontoxic appearing, physical exam as noted above with sinus tenderness, right-sided TM dullness/erythema, and right tonsillar swelling. Uvula midline, talking in complete sentences, no respiratory distress, mastoid WNL. Concern for sinusitis vs viral illness vs otitis and pharyngitis. No evidence of [employer]. Low suspicion for retropharyngeal abscess, mastoiditis Rapid strep ordered in triage Please refer to course for remaining clinical decision making, interpretation of labs/imaging results, and discussions with consultants and/or family members. Differential Diagnosis Differential Diagnoses: The differential diagnosis associated with the presentation includes As above Admission/Observation Consideration of admission/observation: Escalation of care including admission/observation considered Lab Data MDM Lab Attestation statement: I reviewed the patient's lab results. Labs: Lab Results 09/10/22 Range/Units 12:00 S. pyogenes GrpA JERONIMO Negative (Negative) External Record Review External record reviewed: Inpatient record, Office record, Outpatient record, Prior outpatient labs, Prior outpatient radiology, Primary care record and Outside ED record Tests considered The following testing was considered but not selected: As above Discharge Plan Discharge Clinical Impression: Sinusitis, Pharyngitis Patient Disposition: Home, Self-Care Instructions: Pharyngitis (ED), Sinusitis (ED) Additional Instructions: You tested negative for strep throat Augmentin is an antibiotic please take as prescribed Flonase as a nasal decongestion, take as needed Take Tylenol and Motrin as well If symptoms persist or worsen return to the emergency department Follow-up with her doctor Prescriptions: New fluticasone propionate [Flonase Allergy Relief] 50 mcg/actuation spray,suspension 2 spray intranasal DAILY Qty: 16 0RF Rx Instructions: administer into each nostril amoxicillin-pot clavulanate 875-125 mg tablet 1 tab PO BID 7 Days Qty: 14 0RF No Action lidocaine HCl [Aspercreme (lidocaine HCl)] 4 % cream 1 appl topical BID PRN (Reason: pain) Qty: 120 0RF ibuprofen 800 mg tablet 800 mg PO Q8H PRN (Reason: pain) Qty: 14 0RF hydrocodone-acetaminophen 5-325 mg tablet 1 tab PO Q8H PRN (Reason: pain) Qty: 10 0RF Rx Instructions: Patient may request partial fill amoxicillin-pot clavulanate 875-125 mg tablet 1 tab PO BID 7 Days Qty: 14 0RF prednisone 20 mg tablet 40 mg PO DAILY 5 Days Qty: 10 0RF acetaminophen [Tylenol Extra Strength] 500 mg tablet 500 mg PO Q6H PRN (Reason: fever or pain) Qty: 14 0RF benzonatate 100 mg capsule 100 mg PO TID PRN (Reason: cough) Qty: 14 0RF fluticasone propionate [Flonase Allergy Relief] 50 mcg/actuation spray,suspension 2 spray intranasal DAILY Qty: 16 0RF Rx Instructions: administer into each nostril amoxicillin-pot clavulanate 875-125 mg tablet 1 tab PO BID 7 Days Qty: 14 0RF ibuprofen 600 mg tablet 600 mg PO Q6H PRN (Reason: pain) Qty: 30 0RF diazepam [Valium] 5 mg tablet 5 mg PO TID PRN (Reason: muscle spasm) Qty: 10 0RF Rx Instructions: partial fill is okay lidocaine 5 % adhesive patch,medicated 1 patch topical DAILY Qty: 30 0RF Rx Instructions: leave on most painful area for up to 12 hrs fluconazole [Diflucan] 150 mg tablet 150 mg PO Q3D Qty: 2 0RF clotrimazole 1 % cream 1 appful vaginal BEDTIME Qty: 45 0RF cyclobenzaprine 10 mg tablet 10 mg PO BEDTIME PRN (Reason: muscle spasm) Qty: 7 0RF ketorolac 10 mg tablet 10 mg PO TID PRN (Reason: pain) 5 Days Qty: 15 0RF lidocaine 5 % adhesive patch,medicated 1 patch topical DAILY PRN (Reason: pain) Qty: 15 0RF Rx Instructions: leave on most painful area for up to 12 hrs Referrals: Physician,Unknown J [Primary Care Provider] - Stand Alone Forms: Work/School Release Interventions: ED Discharge Assessment Last Done: 09/10/22 14:01 Discharge Date/Time: 09/10/22 14:02
[2022-09-10 12:23] LABS: IDNOW Serial# 6674DD1D; Strep A Nucleic Acid Negative (Negative)
--- NOTE | 2022-09-10 13:01 | PC.NURSE ---
Patient presents with sore throat, has tested negative for strep at this time. Patient is otherwise well appearing, sitting calm and cooperative on stretcher at this time.
[2022-09-10 13:56] VITALS: BP 125/89; PULSE 65; RESP 19; O2SAT 99
== END 2022-09-10 14:02 | disposition home or self-care (01) ==
PROVIDERS: Physician Assistant Medical; Emergency Provider Student in an Organized Health Care Education/Training Program
DX: J02.9 Acute pharyngitis, unspecified (principal); J32.8 Other chronic sinusitis; R50.9 Fever, unspecified; F17.200 Nicotine dependence, unspecified, uncomplicated
CPT/HCPCS: 87651; 99283; 99284

== ENCOUNTER 2023-03-26 10:44 | Emergency (ER) | payer OTHER, SELFPAY ==
[2023-03-26 11:19] VITALS: BP 125/62; PULSE 60; RESP 18; TEMP 36; O2SAT 100; BMI 29.0
--- NOTE | 2023-03-26 11:19 | ED.URI ---
HPI - URI/Sore Throat General Chief Complaint: Upper Respiratory Symptoms Stated Complaint: throat infection? Time Seen by Provider: 03/26/23 11:21 Source: patient, RN notes reviewed and old records reviewed History of Present Illness HPI Narrative: 32yo F w/no sig PMHx presenting to the ED c/o sore throat x2 days w/dry cough, congestion & right ear pain. Admits sister tested +for COVID & returned from [place] 5 days ago. denies fever, chills, inability to swallow CP/SOB MD elicited complaint: cough, sore throat, rhinorrhea and nasal congestion Related Data Previous Rx's Medication Instructions Recorded hydrocodone 5 mg-acetaminophen 325 1 tab PO Q8H PRN pain #10 tabs 12/30/20 mg tablet ibuprofen 800 mg tablet 800 mg PO Q8H PRN pain #14 tabs 12/30/20 lidocaine HCl 4 % topical cream 1 appl topical BID PRN pain #120 12/30/20 (Aspercreme (lidocaine HCl)) grams amoxicillin 875 mg-potassium 1 tab PO BID 7 days #14 tabs 07/07/21 clavulanate 125 mg tablet diazepam 5 mg tablet (Valium) 5 mg PO TID PRN muscle spasm #10 12/04/21 tabs ibuprofen 600 mg tablet 600 mg PO Q6H PRN pain #30 tabs 12/04/21 lidocaine 5 % topical patch 1 patch topical DAILY #30 ea 12/04/21 acetaminophen 500 mg tablet 500 mg PO Q6H PRN fever or pain 03/29/22 (Tylenol Extra Strength) #14 tabs amoxicillin 875 mg-potassium 1 tab PO BID 7 days #14 tabs 03/29/22 clavulanate 125 mg tablet benzonatate 100 mg capsule 100 mg PO TID PRN cough #14 caps 03/29/22 fluticasone propionate 50 2 spray intranasal DAILY #16 grams 03/29/22 mcg/actuation nasal spray,suspension (Flonase Allergy Relief) prednisone 20 mg tablet 40 mg (2 x 20 mg) PO DAILY 5 days 03/29/22 #10 tabs clotrimazole 1 % vaginal cream 1 appful vaginal BEDTIME #45 grams 04/10/22 fluconazole 150 mg tablet 150 mg PO Q3D 2 doses #2 tabs 04/10/22 (Diflucan) cyclobenzaprine 10 mg tablet 10 mg PO BEDTIME PRN muscle spasm 08/31/22 #7 tabs ketorolac 10 mg tablet 10 mg PO TID PRN pain 5 days #15 08/31/22 tabs lidocaine 5 % topical patch 1 patch topical DAILY PRN pain #15 08/31/22 ea amoxicillin 875 mg-potassium 1 tab PO BID 7 days #14 tabs 09/10/22 clavulanate 125 mg tablet fluticasone propionate 50 2 spray intranasal DAILY #16 grams 09/10/22 mcg/actuation nasal spray,suspension (Flonase Allergy Relief) Allergies Allergy/AdvReac Type Severity Reaction Status Date / Time No Known Allergies Allergy Verified 03/26/23 11:18 Review of Systems Review of Systems: Constitutional: No Fever, No Chills ENT/Mouth: + Ear Pain, + Nasal Congestion, No Sinus Pain, No Hoarseness, +sore throat, + Rhinorrhea, No Swallowing Difficulty Cardiovascular: No Chest Pain, No SOB Respiratory: + Cough, No Sputum, No Wheezing Gastrointestinal: No Nausea, No Vomiting, No Abdominal pain Musculoskeletal: No joint pain, + Myalgias, No Joint Swelling Skin: No Skin Lesions, No rash Neuro: No Weakness Yes all other systems are reviewed and are negative Constitutional: Constitutional: Reports as per [facility] Past Medical History Attestation statement: The following information was validated with the patient. Source: old records reviewed Onset Date is defined in the Problem List Problems that require an onset date and time if occurred within 24 hrs of arrival to the ED Aortic Dissection and Rupture; Neurologic impairment; Cardiopulmonary Arrest; Endotracheal Intubation; Insertion or Replacement of Mechanical Circulatory Assist Device Medical History Ear infection Social History Social History Alcohol intake: never Patient Tobacco Use Status: Current everyday Tobacco user Advance Directives: No Advance Directives Information Provided: Yes Physical Exam Vital Signs: Vital Signs: Last Vital Signs Temp 96.8 F 03/26/23 11:19 Pulse 60 03/26/23 11:19 Resp 18 03/26/23 11:19 BP 125/62 03/26/23 11:19 Pulse Ox 100 03/26/23 11:19 O2 Del Method Room Air 03/26/23 11:19 BMI result Body Mass Index 29.0 Const: General: cooperative, healthy appearing and no acute distress Orientation/consciousness: patient oriented x3 Limitations: no limitations HEENT: Head: Yes normal to inspection and Yes atraumatic Ears: hearing grossly normal bilaterally, external ears normal, TM's normal bilaterally and mastoids normal General nose exam: Normal external nose present Face and sinus: Yes normal facial exam Mouth: Normal oral and palatal mucosa present and no drooling Throat: Yes uvula midline, Yes abnormal tonsil (Mild erythema), No peritonsillar mass, No uvula laterally displaced and No uvular edema Eyes: General: appearance normal, both eyes and all related structures EOM: EOMs intact bilaterally Neck: Neck: Yes normal visual inspection and Yes no meningeal signs Resp: Effort & Inspection: normal respiratory effort and no respiratory distress Auscultation: clear to auscultation bilaterally Cardio: Rate: regular rate Heart sounds: S1 normal heart sound present and S2 normal heart sound present Skin: Rashes: no rashes Wounds: no wounds Neuro: General: patient oriented x3, tone normal and no meningeal signs Cranial nerves: Yes CN's II-XII intact bilaterally Gait exam (Neuro): Normal gait present Extrem: General: Yes normal to inspection Course Course Course Narrative: -COVID+ Results discussed with patient including worrisome signs and symptoms and strict return precautions, and when to return to the emergency department. They verbalized understanding and feel safe for discharge at this time. Medical Decision Making Medical Decision Making [facility] Narrative: 32yo F w/no sig PMHx presenting to the ED c/o sore throat x2 days w/dry cough, congestion & right ear pain. On exam vital signs stable, NAD, nontoxic appearing, mild tonsillar erythema, no exudates, uvula midline, TMs WNL, mastoids WNL. Concern for viral illness vs early strep pharyngitis. Lower suspicion for pneumonia/bronchitis, ACS or mastoiditis/chronic otitis externa Plan: Viral testing, rapid strep Please refer to course for remaining clinical decision making, interpretation of labs/imaging results, and discussions with consultants and/or family members. Differential Diagnosis Differential Diagnoses: The differential diagnosis associated with the presentation includes As above Lab Data [facility] Lab Attestation statement: I reviewed the patient's lab results. Labs: Lab Results 03/26/23 Range/Units 12:12 Influenza Type A (PCR) NEGATIVE (Negative) Influenza Type B (PCR) NEGATIVE (Negative) RSV RNA Qual (PCR) NEGATIVE (Negative) SARS-CoV-2 RNA (RT-PCR) POSITIVE A (Negative) S. pyogenes GrpA JERONIMO Negative (Negative) External Record Review External record reviewed: Inpatient record, Office record, Outpatient record, Prior outpatient labs, Prior outpatient radiology, Primary care record and Outside ED record Tests considered The following testing was considered but not selected: As above Prescription Management I considered prescription management with: Pain Medication and Antibiotic Discharge Plan Discharge Clinical Impression: COVID-19 Patient Disposition: Home, Self-Care Instructions: COVID-19 (Coronavirus Disease 2019) (ED) Additional Instructions: YOU HAVE COVID-19 At this time you will be okay for discharge. Please self isolate for 5 days. Do not expose yourself to others. You may not go to work or school. Please continue to follow cold instructions and wash your hands frequently. You may take Tylenol / Motrin as directed on the bottle for pain or fever. If you have constant or persistent shortness of breath, fever unresolved with medications, chest pain, or your unable to eat or drink please return to the ED CDC Guidelines for home isolation: - Stay away from others - WEAR A MASK if you are sick AND STAY HOME - Cover your mouth and nose with a tissue when you cough or sneeze. Dispose of tissues in a lined trash can and wash your hands immediately with soap and water for at least 20 seconds. If soap and water are not available, clean hands with alcohol-based hand dye weigher helper that contains at least 60% alcohol. - Clean your hands often with soap and water for at least 20 seconds - Avoid touching your eyes, nose and mouth with unwashed hands - Do not share dishes, drinking glasses, cups, eating utensils, towels, or bedding with other people in your home. After using these items, wash them thoroughly with soap and water or put in the ground control approach technician. - Clean high-touch surfaces in your isolation area ( sick room and bathroom) every day; let a caregiver clean and disinfect high-touch surfaces in other areas of the home. Clean the area or item with soap and water or another detergent if it is dirty. Then, use a household disinfectant. - Limit contact with pets and animals: If you must care for a pet, wash your hands before and after interacting with them) Prescriptions: No Action lidocaine HCl [Aspercreme (lidocaine HCl)] 4 % cream 1 appl topical BID PRN (Reason: pain) Qty: 120 0RF ibuprofen 800 mg tablet 800 mg PO Q8H PRN (Reason: pain) Qty: 14 0RF hydrocodone-acetaminophen 5-325 mg tablet 1 tab PO Q8H PRN (Reason: pain) Qty: 10 0RF Rx Instructions: Patient may request partial fill amoxicillin-pot clavulanate 875-125 mg tablet 1 tab PO BID 7 Days Qty: 14 0RF prednisone 20 mg tablet 40 mg PO DAILY 5 Days Qty: 10 0RF acetaminophen [Tylenol Extra Strength] 500 mg tablet 500 mg PO Q6H PRN (Reason: fever or pain) Qty: 14 0RF benzonatate 100 mg capsule 100 mg PO TID PRN (Reason: cough) Qty: 14 0RF fluticasone propionate [Flonase Allergy Relief] 50 mcg/actuation spray,suspension 2 spray intranasal DAILY Qty: 16 0RF Rx Instructions: administer into each nostril amoxicillin-pot clavulanate 875-125 mg tablet 1 tab PO BID 7 Days Qty: 14 0RF ibuprofen 600 mg tablet 600 mg PO Q6H PRN (Reason: pain) Qty: 30 0RF diazepam [Valium] 5 mg tablet 5 mg PO TID PRN (Reason: muscle spasm) Qty: 10 0RF Rx Instructions: partial fill is okay lidocaine 5 % adhesive patch,medicated 1 patch topical DAILY Qty: 30 0RF Rx Instructions: leave on most painful area for up to 12 hrs fluconazole [Diflucan] 150 mg tablet 150 mg PO Q3D Qty: 2 0RF clotrimazole 1 % cream 1 appful vaginal BEDTIME Qty: 45 0RF fluticasone propionate [Flonase Allergy Relief] 50 mcg/actuation spray,suspension 2 spray intranasal DAILY Qty: 16 0RF Rx Instructions: administer into each nostril amoxicillin-pot clavulanate 875-125 mg tablet 1 tab PO BID 7 Days Qty: 14 0RF cyclobenzaprine 10 mg tablet 10 mg PO BEDTIME PRN (Reason: muscle spasm) Qty: 7 0RF ketorolac 10 mg tablet 10 mg PO TID PRN (Reason: pain) 5 Days Qty: 15 0RF lidocaine 5 % adhesive patch,medicated 1 patch topical DAILY PRN (Reason: pain) Qty: 15 0RF Rx Instructions: leave on most painful area for up to 12 hrs Referrals: Physician,None [Primary Care Provider] - Stand Alone Forms: Work/School Release Interventions: ED Discharge Assessment Last Done: 03/26/23 13:39 Discharge Date/Time: 03/26/23 13:39
== END 2023-03-26 13:39 | disposition home or self-care (01) ==
PROVIDERS: Emergency Provider Student in an Organized Health Care Education/Training Program
DX: U07.1 COVID-19 (principal); J02.9 Acute pharyngitis, unspecified; R05.9 Cough, unspecified
CPT/HCPCS: 0241U; 87651; 99282; 99283

== ENCOUNTER 2023-08-03 15:44 | Emergency (ER) | payer OTHER, SELFPAY ==
--- NOTE | ~2023-08-03 | XR_ITS ---
EXAMINATION: XR LUMBOSACRAL SPINE CLINICAL INFORMATION: Low back pain. COMPARISON: Lumbar spine radiographs dated 08/31/2022. TECHNIQUE: Three views of the lumbosacral spine. FINDINGS: There are 5 nonrib bearing lumbar vertebrae. Lumbar spinal alignment is anatomic in the sagittal projection. Vertebral body heights are maintained. Intervertebral disc space heights are well preserved. No fracture. The sacroiliac joints are maintained. There is a moderate stool burden. XR/XR lumbar spine 2-3V IMPRESSION: No acute osseous lumbar spine abnormality. No change from prior study.
--- NOTE | ~2023-08-03 | XR_ITS ---
EXAMINATION: XR SACRUM AND COCCYX CLINICAL INFORMATION: Back pain. COMPARISON: None available. TECHNIQUE: 3 radiographs of the sacrum. FINDINGS: There is no fracture or dislocation. The sacroiliac joints and symphysis pubis are maintained. XR/XR sacrum coccyx min 2V IMPRESSION: No fracture or dislocation.
[2023-08-03 16:41] VITALS: BP 109/61; PULSE 76; RESP 16; TEMP 36.6; O2SAT 99; BMI 29.0
--- NOTE | 2023-08-03 17:01 | ED_ITS ---
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 Patient felt a pop in her lower back, still able to ambulate in the emergency department feeling pulled muscle in her left lower back. No fever, no chills, no history of IV drug abuse. Related Data Previous Rx's ?Medication ?Instructions ?Recorded hydrocodone 5 mg-acetaminophen 325 1 tab PO Q8H PRN pain #10 tabs 12/30/20 mg tablet ibuprofen 800 mg tablet 800 mg PO Q8H PRN pain #14 tabs 12/30/20 lidocaine HCl 4 % topical cream 1 appl topical BID PRN pain #120 12/30/20 (Aspercreme (lidocaine HCl)) grams amoxicillin 875 mg-potassium 1 tab PO BID 7 days #14 tabs 07/07/21 clavulanate 125 mg tablet diazepam 5 mg tablet (Valium) 5 mg PO TID PRN muscle spasm #10 12/04/21 tabs ibuprofen 600 mg tablet 600 mg PO Q6H PRN pain #30 tabs 12/04/21 lidocaine 5 % topical patch 1 patch topical DAILY #30 ea 12/04/21 acetaminophen 500 mg tablet 500 mg PO Q6H PRN fever or pain 03/29/22 (Tylenol Extra Strength) #14 tabs amoxicillin 875 mg-potassium 1 tab PO BID 7 days #14 tabs 03/29/22 clavulanate 125 mg tablet benzonatate 100 mg capsule 100 mg PO TID PRN cough #14 caps 03/29/22 fluticasone propionate 50 2 spray intranasal DAILY #16 grams 03/29/22 mcg/actuation nasal spray,suspension (Flonase Allergy Relief) prednisone 20 mg tablet 40 mg (2 x 20 mg) PO DAILY 5 days 03/29/22 #10 tabs clotrimazole 1 % vaginal cream 1 appful vaginal BEDTIME #45 grams 04/10/22 fluconazole 150 mg tablet 150 mg PO Q3D 2 doses #2 tabs 04/10/22 (Diflucan) cyclobenzaprine 10 mg tablet 10 mg PO BEDTIME PRN muscle spasm 08/31/22 #7 tabs ketorolac 10 mg tablet 10 mg PO TID PRN pain 5 days #15 08/31/22 tabs lidocaine 5 % topical patch 1 patch topical DAILY PRN pain #15 08/31/22 ea amoxicillin 875 mg-potassium 1 tab PO BID 7 days #14 tabs 09/10/22 clavulanate 125 mg tablet fluticasone propionate 50 2 spray intranasal DAILY #16 grams 09/10/22 mcg/actuation nasal spray,suspension (Flonase Allergy Relief) cyclobenzaprine 10 mg tablet 10 mg PO TID PRN muscle spasm #10 08/03/23 tabs ibuprofen 600 mg tablet 600 mg PO Q8H PRN pain #10 tabs 08/03/23 Allergies Allergy/AdvReac Type Severity Reaction Status Date / Time No Known Allergies Allergy Verified 08/03/23 16:46 Review of Systems Review of Systems: All other systems are reviewed and are negative Constitutional: Reports as per HPI and Reports no additional constitutional complaints Eyes: Reports as per HPI and Reports no additional eye complaints Reports system reviewed and no additional complaints, except as documented Cardiovascular: Reports as per HPI and Reports no additional cardiovascular complaints Respiratory: Reports as per HPI and Reports no additional respiratory complaints Gastrointestinal: Reports as per HPI and Reports no additional gastrointestinal complaints Genitourinary: Reports no additional female genitourinary complaints Musculoskeletal: Reports no additional musculoskeletal complaints Skin/Breast: Reports system reviewed and no additional complaints, except as docu Psychiatric: Reports no additional psychiatric complaints Endocrine: Reports no additional endocrine complaints Hematologic/Lymphatic: Reports no additional hematologic/lymphatic complaints Allergic/Immunologic: Reports no additional allergic/immunologic complaints Reports system reviewed and no additional complaints, except as documented and Reports Abnormal speech present [facility] Past Medical History Medical History Ear infection Social History Social History Alcohol intake: never Patient Tobacco Use Status: Current everyday Tobacco user Smoked in Last 30 Days: No Use of substances other than those prescribed or required for medical reasons: No Advance Directives: No Advance Directives Information Provided: No Do you have a plan to hurt others: No Plan Physical Exam Vital Signs: Vital Signs: Last Vital Signs Temp 97.6 F 08/03/23 20:56 Pulse 67 08/03/23 20:56 Resp 16 08/03/23 20:56 BP 125/79 08/03/23 20:56 Pulse Ox 98 08/03/23 20:56 O2 Del Method Room Air 08/03/23 20:56 BMI result Body Mass Index 29.0 Vital signs have been reviewed and appear to be correct. Blood pressure elevated. Heart rate normal. Respiratory rate normal. Temperature normal. Oxygen saturation normal. Appearance: Alert. Oriented X3. No acute distress. Head: Normal external exam. Normocephalic. Atraumatic. No Díaz signs noted. No raccoon eyes noted Eyes: PERRLA. EOMI. Conjunctiva and sclera normal. Eyelids normal. ENT: TM's Normal. Pharynx normal. Uvula midline. Moist mucous membranes. No trismus noted. No drooling noted. No muffled voice noted. Neck: Normal inspection. Neck supple. FROM. No adenopathy. Thyroid Normal. No meningeal signs. No neck mass noted. CVS: Normal heart rate and rhythm. Heart sound normal. No murmurs noted. Pulses normal throughout. Respiratory: No respiratory distress. Painless inspiration. Breath sounds normal. No wheezes/rales/rhonchi noted. Chest nontender. No accessory muscle usage noted or decreased air movement noted. Abdomen: Soft and nontender. Bowel sounds normal in all 4 quadrants. No distention noted. No organomegaly noted. No visible injury noted. Back: No CVA tenderness. Bilateral symmetrical paravertebral muscle spasm, with focal tenderness over the left sacroiliac joint, no deformity, no step-off. Skin: Skin warm and dry. Normal skin color. Normal skin turgor. No rash es/lesions/lacerations noted. Extremities: No lower extremity edema. Extremities exhibit normal range of motion. Extremities nontender. Neuro: Oriented X 3. Cranial nerve exam: II-XII are grossly intact No motor deficit. No sensory deficit. Reflexes normal. Perianal sensation is intact, able to ambulate on both heels and toes. Course Course Course Narrative: RME: Triage done by WAYNE Stovall. 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 Patient heard a pop in his left lower back. Patient states having this before. Patient denies any abdominal blunt trauma. Positive for left lower spine muscular tenderness on palpation. Patient is sent for x-rays. Reevaluation(s) Reevaluation #1: Feels better after pain medication, able to ambulate more comfortably with steady gait, normal neuro exam, low probability of epidural abscess patient never had history of IV drug abuse, no fever, no chills, normal neuro exam. Time: 20:43 Medications Administered Discontinued Medications Generic Name Dose Route Start Last Admin Trade Name Freq PRN Reason Stop Dose Admin Cyclobenzaprine HCl 10 mg 08/03/23 19:16 08/03/23 19:42 Cyclobenzaprine Hcl 10 Mg Tablet PO 08/03/23 19:17 10 mg ONCE ONE Administration Hydromorphone HCl 1 mg 08/03/23 19:16 08/03/23 19:42 Hydromorphone Hcl 1 Mg/Ml Syringe IM 08/03/23 19:17 1 mg ONCE ONE Administration Protocol Ketorolac Tromethamine 30 mg 08/03/23 19:16 08/03/23 19:41 Ketorolac Tromethamine 30 Mg/Ml Vial IM 08/03/23 19:17 30 mg ONCE ONE Administration Medical Decision Making Differential Diagnosis Differential Diagnoses: The differential diagnosis associated with the presentation includes ( Sacroiliac joint sprain, sacroiliitis, herniated disc, osteoarthritis, lumbar spine fracture.) Admission/Observation Consideration of admission/observation: Escalation of care including admission/observation considered Independent Interpretation I performed an independent interpretation of an: Plain X-Ray ( Lumbar spine and sacrum x-ray:No fracture or dislocation. ) Radiology Impression Discussion of test interpretation with radiology: I have reviewed the radiologist's reading. Discharge Plan Discharge Clinical Impression: Strain of lumbar region, Sacroiliac joint pain Patient Disposition: Home, Self-Care Instructions: Muscle Strain (ED) Prescriptions: New ibuprofen 600 mg tablet 600 mg PO Q8H PRN (Reason: pain) Qty: 10 0RF cyclobenzaprine 10 mg tablet 10 mg PO TID PRN (Reason: muscle spasm) Qty: 10 0RF No Action lidocaine HCl [Aspercreme (lidocaine HCl)] 4 % cream 1 appl topical BID PRN (Reason: pain) Qty: 120 0RF ibuprofen 800 mg tablet 800 mg PO Q8H PRN (Reason: pain) Qty: 14 0RF hydrocodone-acetaminophen 5-325 mg tablet 1 tab PO Q8H PRN (Reason: pain) Qty: 10 0RF Rx Instructions: Patient may request partial fill amoxicillin-pot clavulanate 875-125 mg tablet 1 tab PO BID 7 Days Qty: 14 0RF prednisone 20 mg tablet 40 mg PO DAILY 5 Days Qty: 10 0RF acetaminophen [Tylenol Extra Strength] 500 mg tablet 500 mg PO Q6H PRN (Reason: fever or pain) Qty: 14 0RF benzonatate 100 mg capsule 100 mg PO TID PRN (Reason: cough) Qty: 14 0RF fluticasone propionate [Flonase Allergy Relief] 50 mcg/actuation spray,suspension 2 spray intranasal DAILY Qty: 16 0RF Rx Instructions: administer into each nostril amoxicillin-pot clavulanate 875-125 mg tablet 1 tab PO BID 7 Days Qty: 14 0RF ibuprofen 600 mg tablet 600 mg PO Q6H PRN (Reason: pain) Qty: 30 0RF diazepam [Valium] 5 mg tablet 5 mg PO TID PRN (Reason: muscle spasm) Qty: 10 0RF Rx Instructions: partial fill is okay lidocaine 5 % adhesive patch,medicated 1 patch topical DAILY Qty: 30 0RF Rx Instructions: leave on most painful area for up to 12 hrs fluconazole [Diflucan] 150 mg tablet 150 mg PO Q3D Qty: 2 0RF clotrimazole 1 % cream 1 appful vaginal BEDTIME Qty: 45 0RF fluticasone propionate [Flonase Allergy Relief] 50 mcg/actuation spray,suspension 2 spray intranasal DAILY Qty: 16 0RF Rx Instructions: administer into each nostril amoxicillin-pot clavulanate 875-125 mg tablet 1 tab PO BID 7 Days Qty: 14 0RF cyclobenzaprine 10 mg tablet 10 mg PO BEDTIME PRN (Reason: muscle spasm) Qty: 7 0RF ketorolac 10 mg tablet 10 mg PO TID PRN (Reason: pain) 5 Days Qty: 15 0RF lidocaine 5 % adhesive patch,medicated 1 patch topical DAILY PRN (Reason: pain) Qty: 15 0RF Rx Instructions: leave on most painful area for up to 12 hrs Stand Alone Forms: Work/School Release Interventions: ED Discharge Assessment Last Done: 08/03/23 20:56 Discharge Date/Time: 08/03/23 20:58 Print Language: Cymraes
[2023-08-03 19:24] VITALS: BP 121/71; PULSE 67; RESP 16; O2SAT 99
[2023-08-03] MEDS: Ketorolac Tromethamine 30 MG/ML VIAL IM (19:41)
[2023-08-03] MEDS: Cyclobenzaprine HCl 10 MG TABLET PO (19:42)
[2023-08-03] MEDS: HYDROmorphone HCl 1 MG/ML SYRINGE IM (19:42)
--- NOTE | 2023-08-03 20:21 | PC.NURSE ---
pt medicated per mar, reports decrease in pain,pt oob to bathroom with no sign of distress.
--- NOTE | 2023-08-03 20:54 | PC.NURSE ---
pt a&o, able to ambulate with a steady gait, reviewed discharge instruction with pt, pt verbalized understanding.
[2023-08-03 20:56] VITALS: BP 125/79; PULSE 67; RESP 16; TEMP 36.4; O2SAT 98
== END 2023-08-03 20:58 | disposition home or self-care (01) ==
PROVIDERS: Emergency Provider Emergency Medicine
DX: S39.012A Strain of muscle, fascia and tendon of lower back, initial encounter (principal); X50.1XXA Overexertion from prolonged static or awkward postures, initial encounter; M53.3 Sacrococcygeal disorders, not elsewhere classified; M54.50 Low back pain, unspecified; F17.210 Nicotine dependence, cigarettes, uncomplicated; Y93.89 Activity, other specified; Y92.9 Unspecified place or not applicable; Y99.9 Unspecified external cause status
CPT/HCPCS: 72100; 72220; 96372; 99284; J1170; J1885

== ENCOUNTER 2023-09-26 10:24 | Emergency (ER) | payer OTHER, SELFPAY ==
--- NOTE | ~2023-09-26 | US_ITS ---
EXAMINATION: US OBSTETRICAL ULTRASOUND CLINICAL INFORMATION: Spotting COMPARISON: None available. LMP: 08/16/2023. Gestational age by maternal dates is 5 weeks and 6 days. Estimated date of delivery by maternal dates is 05/22/2024. TECHNIQUE: Ultrasound of the maternal pelvis is performed using transabdominal and transvaginal transducers. Transvaginal imaging is performed due to inadequate visualization transabdominally. M-mode Doppler is also performed. FINDINGS: There is a single intrauterine gestational sac with visible yolk sac, embryo/fetus, and cardiac activity. There is no significant subchorionic hemorrhage or hematoma. HR: 117 beats per minute. CRL (crown rump length): 0.5 cm (6 weeks and 2 days +/- 4 days). ELOY (estimated date of delivery): 04/29/2024 +/- 4 days. MATERNAL ADNEXA: The right maternal ovary measures 4.7 x 2.5 x 2.9 cm. The left maternal ovary not identified sonographically. No adnexal mass. Small volume simple pelvic free fluid. US/US OB <= 14 weeks fetus IMPRESSION: 1. Single intrauterine gestation with ultrasound gestational age of 6 weeks and 2 days +/- 4 days. 2. Estimated date of delivery is 04/29/2024 +/- 4 days. 3. No maternal adnexal mass.
[2023-09-26 10:33] VITALS: BP 120/77; PULSE 74; RESP 18; TEMP 36.9; O2SAT 100; BMI 28.9
[2023-09-26 10:54] LABS: MANUAL DIFF FLAG NO
[2023-09-26 10:55] LABS: UPreg QC Valid YES; Urine Pregnancy POSITIVE (NEGATIVE)
[2023-09-26 10:57] LABS: Basophils Percent Auto 0.5 % (0-2); Eosinophils Percent Auto 0.7 % (0-4); Hematocrit 37.5 % (37.0-47.0); Hemoglobin 13.4 g/dl (12.0-16.0); Imm Gran Abs Auto 0.01 X10*3/uL (0.00-0.03); Imm Gran Pct Auto 0.2 % (0.0-0.4); Lymphocytes Absolute Auto 1.2 X10*3/uL (1.2-4.9); Lymphocytes Percent Auto 22.3 % (20-40); Mean Corpuscular HGB Conc 35.7 g/dl (31.0-35.0); Mean Corpuscular Hemoglobin 31.4 pg (27.0-33.0); Mean Corpuscular Volume 87.8 fL (80.0-98.0); Mean Platelet Volume 9.5 fL (9.4-12.3); Monocytes Absolute Auto 0.3 X10*3/uL (0.1-1.2); Neutrophils Percent Auto 71.3 % (45-73); Platelet Count 233 X10*3/uL (160-400); Red Blood Count 4.27 X10*6/uL (4.20-5.50); Red Cell Distribution Width 11.5 % (11.0-16.0); White Blood Count 5.6 X10*3/uL (4.8-10.8)
[2023-09-26 11:09] LABS: Alanine Aminotransferase 28 U/L (0-31); Albumin Level 4.2 g/dL (3.5-5.0); Alkaline Phosphatase 58 U/L (39-117); Anion Gap 11 (12-20); Aspartate Amino Transferase 19 U/L (5-31); Bilirubin Total 1.1 mg/dL (0.0-1.0); Blood Urea Nitrogen 9 mg/dL (9-16); Carbon Dioxide 20 mmol/L (22-29); Chloride 109 mmol/L (96-108); Creatinine Clr Calc Pharmacy 129.5; Estimated Glomerular Filt Rate > 60; Glucose Random 102 mg/dL (60-115); Potassium 3.5 mmol/L (3.3-5.1); Sodium 136 mmol/L (135-145); Total Protein 7.1 g/dL (6.5-8.0)
--- NOTE | 2023-09-26 11:17 | ED.PREGNANCY ---
HPI - General Chief complaint: Vaginal Bleeding Stated complaint: and bleeding Time Seen by Provider: 09/26/23 11:04 Source: patient Mode of arrival: ambulatory Limitations: no limitations History of Present Illness HPI Narrative: This is 34 years old patient atopic 1 presented to the emergency room complaining of abdominal cramps and spotting. Denies any fever chills vomiting and diarrhea. MD Complaint: abdominal pain and vaginal bleeding Onset (ago): day(s) (1) Location: pelvis Severity: mild Quality: Cramping Relieving factors: none Exacerbating factors: none Associated symptoms: denies other symptoms Related Data Previous Rx's ?Medication ?Instructions ?Recorded hydrocodone 5 mg-acetaminophen 325 1 tab PO Q8H PRN pain #10 tabs 12/30/20 mg tablet ibuprofen 800 mg tablet 800 mg PO Q8H PRN pain #14 tabs 12/30/20 lidocaine HCl 4 % topical cream 1 appl topical BID PRN pain #120 12/30/20 (Aspercreme (lidocaine HCl)) grams amoxicillin 875 mg-potassium 1 tab PO BID 7 days #14 tabs 07/07/21 clavulanate 125 mg tablet diazepam 5 mg tablet (Valium) 5 mg PO TID PRN muscle spasm #10 12/04/21 tabs ibuprofen 600 mg tablet 600 mg PO Q6H PRN pain #30 tabs 12/04/21 lidocaine 5 % topical patch 1 patch topical DAILY #30 ea 12/04/21 acetaminophen 500 mg tablet 500 mg PO Q6H PRN fever or pain 03/29/22 (Tylenol Extra Strength) #14 tabs amoxicillin 875 mg-potassium 1 tab PO BID 7 days #14 tabs 03/29/22 clavulanate 125 mg tablet benzonatate 100 mg capsule 100 mg PO TID PRN cough #14 caps 03/29/22 fluticasone propionate 50 2 spray intranasal DAILY #16 grams 03/29/22 mcg/actuation nasal spray,suspension (Flonase Allergy Relief) prednisone 20 mg tablet 40 mg (2 x 20 mg) PO DAILY 5 days 03/29/22 #10 tabs clotrimazole 1 % vaginal cream 1 appful vaginal BEDTIME #45 grams 04/10/22 fluconazole 150 mg tablet 150 mg PO Q3D 2 doses #2 tabs 04/10/22 (Diflucan) cyclobenzaprine 10 mg tablet 10 mg PO BEDTIME PRN muscle spasm 08/31/22 #7 tabs ketorolac 10 mg tablet 10 mg PO TID PRN pain 5 days #15 08/31/22 tabs lidocaine 5 % topical patch 1 patch topical DAILY PRN pain #15 08/31/22 ea amoxicillin 875 mg-potassium 1 tab PO BID 7 days #14 tabs 09/10/22 clavulanate 125 mg tablet fluticasone propionate 50 2 spray intranasal DAILY #16 grams 09/10/22 mcg/actuation nasal spray,suspension (Flonase Allergy Relief) cyclobenzaprine 10 mg tablet 10 mg PO TID PRN muscle spasm #10 08/03/23 tabs ibuprofen 600 mg tablet 600 mg PO Q8H PRN pain #10 tabs 08/03/23 metoclopramide HCl 10 mg tablet 10 mg PO Q6H PRN nausea and 09/26/23 (Reglan) vomiting #15 tabs Allergies Allergy/AdvReac Type Severity Reaction Status Date / Time No Known Allergies Allergy Verified 09/26/23 10:37 Review of Systems Constitutional: Constitutional: Reports no additional constitutional complaints ENT: Reports system reviewed and no additional complaints, except as documented Cardiovascular: Cardiovascular: Reports no additional cardiovascular complaints [facility] Past Medical History [facility] Narrative: History of ectopic Medical History Ear infection Social History Social History Alcohol intake: never Patient Tobacco Use Status: Current everyday Tobacco user Advance Directives: No Advance Directives Information Provided: Yes Do you have a plan to hurt others: No Plan Physical Exam Vital Signs: Vital Signs: Last Vital Signs Temp 98.4 F 09/26/23 13:28 Pulse 74 09/26/23 13:28 Resp 18 09/26/23 13:28 BP 120/77 09/26/23 13:28 Pulse Ox 100 09/26/23 10:33 O2 Del Method Room Air 09/26/23 13:28 BMI result Body Mass Index 28.9 Const: General: cooperative Nutritional Appearance: average body habitus Orientation/consciousness: patient oriented x3 Eyes: General: appearance normal, both eyes and all related structures Neck: Neck: Yes normal visual inspection Chest: Chest palpation & inspection: normal inspection of the chest Resp: Effort & Inspection: normal respiratory effort Auscultation: clear to auscultation bilaterally Cardio: Jugular venous distension: no JVD Rate: regular rate Rhythm: regular rhythm GI: Inspection: Yes normal to inspection Palpation (GI): Soft to palpation, not firm and nontender Auscultation: normal bowel sounds Skin: General skin exam: no rashes or lesions noted, elasticity normal and turgor normal Lesions: no lesions Rashes: no rashes Neuro: General: patient oriented x3 Extrem: General: Yes normal to inspection Course Reevaluation(s) Reevaluation #1: Ultrasound results she has a IUP at this time she can be discharged home follow-up with the provider Time: 13:02 Medical Decision Making Medical Decision Making [facility] Narrative: Patient presented with vaginal bleeding she is we will do ultrasound labs and reassess Differential Diagnosis Differential Diagnoses: The differential diagnosis associated with the presentation includes Ectopic /miscarriage Admission/Observation Consideration of admission/observation: Escalation of care including admission/observation considered Lab Data [facility] Lab Attestation statement: I reviewed the patient's lab results. 09/26/23 10:50 09/26/23 10:50 Labs: Lab Results 09/26/23 09/26/23 Range/Units 10:49 10:50 WBC 5.6 (4.8-10.8) X10*3/uL RBC 4.27 (4.20-5.50) X10*6/uL Hgb 13.4 (12.0-16.0) g/dl Hct 37.5 (37.0-47.0) % MCV 87.8 (80.0-98.0) fL MCH 31.4 (27.0-33.0) pg MCHC 35.7 H (31.0-35.0) g/dl RDW 11.5 (11.0-16.0) % Plt Count 233 (160-400) X10*3/uL MPV 9.5 (9.4-12.3) fL Immature Gran % (Auto) 0.2 (0.0-0.4) % Neut % (Auto) 71.3 (45-73) % Lymph % (Auto) 22.3 (20-40) % [place] % (Auto) 5.0 (2-11) % Eos % (Auto) 0.7 (0-4) % Baso % (Auto) 0.5 (0-2) % Lymph # (Auto) 1.2 (1.2-4.9) X10*3/uL [place] # (Auto) 0.3 (0.1-1.2) X10*3/uL Eos # (Auto) 0.0 (0.0-0.4) X10*3/uL Baso # (Auto) 0.0 (0.0-0.2) X10*3/uL Abs Immat Gran (auto) 0.01 (0.00-0.03) X10*3/uL Absolute Neuts (auto) 4.0 (2.0-8.3) x10*3/uL Absolute Nucleated RBC 0.000 (0.0-0.012) X10*3/uL Nucleated RBC % (auto) 0.0 (0.0-0.2) /100WBC Sodium 136 (135-145) mmol/L Potassium 3.5 (3.3-5.1) mmol/L Chloride 109 H (96-108) mmol/L Carbon Dioxide 20 L (22-29) mmol/L Anion Gap 11 L (12-20) BUN 9 (9-16) mg/dL Creatinine 0.70 (0.5-1.4) mg/dL Estim Creat Clear Calc 129.5 Estimated GFR > 60 Random Glucose 102 (60-115) mg/dL Calcium 9.0 (8.4-10.2) mg/dL Total Bilirubin 1.1 H (0.0-1.0) mg/dL AST 19 (5-31) U/L ALT 28 (0-31) U/L Alkaline Phosphatase 58 (39-117) U/L Total Protein 7.1 (6.5-8.0) g/dL Albumin 4.2 (3.5-5.0) g/dL Beta HCG, Quant 58506 mIU/mL Urine Test POSITIVE H (NEGATIVE) Radiology Impression Discussion of test interpretation with radiology: I discussed test interpretation with the radiologist and I have reviewed the radiologist's reading. Radiologist Impression: HR: 117 beats per minute. CRL (crown rump length): 0.5 cm (6 weeks and 2 days +/- 4 days). ELOY (estimated date of delivery): 04/29/2024 +/- 4 days. MATERNAL ADNEXA: The right maternal ovary measures 4.7 x 2.5 x 2.9 cm. The left maternal ovary not identified sonographically. No adnexal mass. Small volume simple pelvic free fluid. US/US OB <= 14 weeks fetus IMPRESSION: 1. Single intrauterine gestation with ultrasound gestational age of 6 weeks and 2 days +/- 4 days. 2. Estimated date of delivery is 04/29/2024 +/- 4 days. 3. No maternal adnexal mass. Dictated By: Christina Pelletier MD Discharge Plan Discharge Clinical Impression: Abdominal pain during in first trimester Patient Disposition: Home, Self-Care Instructions: Abdominal Pain in (ED) Prescriptions: New metoclopramide HCl [Reglan] 10 mg tablet 10 mg PO Q6H PRN (Reason: nausea and vomiting) Qty: 15 0RF No Action lidocaine HCl [Aspercreme (lidocaine HCl)] 4 % cream 1 appl topical BID PRN (Reason: pain) Qty: 120 0RF ibuprofen 800 mg tablet 800 mg PO Q8H PRN (Reason: pain) Qty: 14 0RF hydrocodone-acetaminophen 5-325 mg tablet 1 tab PO Q8H PRN (Reason: pain) Qty: 10 0RF Rx Instructions: Patient may request partial fill amoxicillin-pot clavulanate 875-125 mg tablet 1 tab PO BID 7 Days Qty: 14 0RF prednisone 20 mg tablet 40 mg PO DAILY 5 Days Qty: 10 0RF acetaminophen [Tylenol Extra Strength] 500 mg tablet 500 mg PO Q6H PRN (Reason: fever or pain) Qty: 14 0RF benzonatate 100 mg capsule 100 mg PO TID PRN (Reason: cough) Qty: 14 0RF fluticasone propionate [Flonase Allergy Relief] 50 mcg/actuation spray,suspension 2 spray intranasal DAILY Qty: 16 0RF Rx Instructions: administer into each nostril amoxicillin-pot clavulanate 875-125 mg tablet 1 tab PO BID 7 Days Qty: 14 0RF ibuprofen 600 mg tablet 600 mg PO Q6H PRN (Reason: pain) Qty: 30 0RF diazepam [Valium] 5 mg tablet 5 mg PO TID PRN (Reason: muscle spasm) Qty: 10 0RF Rx Instructions: partial fill is okay lidocaine 5 % adhesive patch,medicated 1 patch topical DAILY Qty: 30 0RF Rx Instructions: leave on most painful area for up to 12 hrs fluconazole [Diflucan] 150 mg tablet 150 mg PO Q3D Qty: 2 0RF clotrimazole 1 % cream 1 appful vaginal BEDTIME Qty: 45 0RF fluticasone propionate [Flonase Allergy Relief] 50 mcg/actuation spray,suspension 2 spray intranasal DAILY Qty: 16 0RF Rx Instructions: administer into each nostril amoxicillin-pot clavulanate 875-125 mg tablet 1 tab PO BID 7 Days Qty: 14 0RF cyclobenzaprine 10 mg tablet 10 mg PO BEDTIME PRN (Reason: muscle spasm) Qty: 7 0RF ketorolac 10 mg tablet 10 mg PO TID PRN (Reason: pain) 5 Days Qty: 15 0RF lidocaine 5 % adhesive patch,medicated 1 patch topical DAILY PRN (Reason: pain) Qty: 15 0RF Rx Instructions: leave on most painful area for up to 12 hrs ibuprofen 600 mg tablet 600 mg PO Q8H PRN (Reason: pain) Qty: 10 0RF cyclobenzaprine 10 mg tablet 10 mg PO TID PRN (Reason: muscle spasm) Qty: 10 0RF Referrals: Subhash Valdez MD [Physician] - 2 days Interventions: ED Discharge Assessment Last Done: 09/26/23 13:28 Discharge Date/Time: 09/26/23 13:30 Print Language: Turkmen
[2023-09-26 13:28] VITALS: BP 120/77; PULSE 74; RESP 18; TEMP 36.9
== END 2023-09-26 13:30 | disposition home or self-care (01) ==
PROVIDERS: Emergency Provider Emergency Medicine
DX: O26.91 Pregnancy related conditions, unspecified, first trimester (principal); R10.9 Unspecified abdominal pain
CPT/HCPCS: 36415; 76801; 80053; 81025; 84702; 85025; 99282; 99284

== ENCOUNTER 2023-10-28 16:34 | Emergency (ER) | payer OTHER, SELFPAY ==
[2023-10-28 16:45] VITALS: BP 121/77; PULSE 79; RESP 20; TEMP 37.3; O2SAT 99; BMI 28.5
--- NOTE | 2023-10-28 16:48 | ED_ITS ---
HPI - General Adult General Chief complaint: OB Stated complaint: cramping edc 3/3 Related Data Previous Rx's ?Medication ?Instructions ?Recorded hydrocodone 5 mg-acetaminophen 325 1 tab PO Q8H PRN pain #10 tabs 12/30/20 mg tablet ibuprofen 800 mg tablet 800 mg PO Q8H PRN pain #14 tabs 12/30/20 lidocaine HCl 4 % topical cream 1 appl topical BID PRN pain #120 12/30/20 (Aspercreme (lidocaine HCl)) grams amoxicillin 875 mg-potassium 1 tab PO BID 7 days #14 tabs 07/07/21 clavulanate 125 mg tablet diazepam 5 mg tablet (Valium) 5 mg PO TID PRN muscle spasm #10 12/04/21 tabs ibuprofen 600 mg tablet 600 mg PO Q6H PRN pain #30 tabs 12/04/21 lidocaine 5 % topical patch 1 patch topical DAILY #30 ea 12/04/21 acetaminophen 500 mg tablet 500 mg PO Q6H PRN fever or pain 03/29/22 (Tylenol Extra Strength) #14 tabs amoxicillin 875 mg-potassium 1 tab PO BID 7 days #14 tabs 03/29/22 clavulanate 125 mg tablet benzonatate 100 mg capsule 100 mg PO TID PRN cough #14 caps 03/29/22 fluticasone propionate 50 2 spray intranasal DAILY #16 grams 03/29/22 mcg/actuation nasal spray,suspension (Flonase Allergy Relief) prednisone 20 mg tablet 40 mg (2 x 20 mg) PO DAILY 5 days 03/29/22 #10 tabs clotrimazole 1 % vaginal cream 1 appful vaginal BEDTIME #45 grams 04/10/22 fluconazole 150 mg tablet 150 mg PO Q3D 2 doses #2 tabs 04/10/22 (Diflucan) cyclobenzaprine 10 mg tablet 10 mg PO BEDTIME PRN muscle spasm 08/31/22 #7 tabs ketorolac 10 mg tablet 10 mg PO TID PRN pain 5 days #15 08/31/22 tabs lidocaine 5 % topical patch 1 patch topical DAILY PRN pain #15 08/31/22 ea amoxicillin 875 mg-potassium 1 tab PO BID 7 days #14 tabs 09/10/22 clavulanate 125 mg tablet fluticasone propionate 50 2 spray intranasal DAILY #16 grams 09/10/22 mcg/actuation nasal spray,suspension (Flonase Allergy Relief) cyclobenzaprine 10 mg tablet 10 mg PO TID PRN muscle spasm #10 08/03/23 tabs ibuprofen 600 mg tablet 600 mg PO Q8H PRN pain #10 tabs 08/03/23 metoclopramide HCl 10 mg tablet 10 mg PO Q6H PRN nausea and 09/26/23 (Reglan) vomiting #15 tabs Allergies Allergy/AdvReac Type Severity Reaction Status Date / Time No Known Allergies Allergy Verified 10/28/23 16:47 [facility] Past Medical History Medical History Ear infection Social History Social History Alcohol intake: never Patient Tobacco Use Status: Current everyday Tobacco user Physical Exam ED Vital Signs: Vital Signs - 24 hr 10/28/23 16:45 Temperature 99.2 F Pulse Rate 79 Respiratory Rate 20 Blood Pressure 121/77 Pulse Oximetry 99 Oxygen Delivery Method Room Air BMI result Body Mass Index 28.5 Course Course Course Narrative: This is a Rapid Medical Examination (RME) performed by Lupis Jorgensen PA-C in triage. Full HPI, ROS, assessment and treatment plan per primary provider in the Main ED. 33 yo female A3 approximately 10 wks GA here for eval of lower abdominal cramping x2 hours. confirmed IUP on 09/26/23. has first f/u w/ OBGYN in 1 wk. denies abdominal trauma. admits to dark pink vaginal discharge. no noted bleeding/ clots. History of ectopic x3. + patient in obvious discomfort Plan: labs, hcg, us ordered Reevaluation(s) Reevaluation #1: Patient left the ED without completing treatment. Discharge Plan Discharge Clinical Impression: Abdominal pain during in first trimester Patient Disposition: Left W/O Completing Treatment Prescriptions: No Action lidocaine HCl [Aspercreme (lidocaine HCl)] 4 % cream 1 appl topical BID PRN (Reason: pain) Qty: 120 0RF ibuprofen 800 mg tablet 800 mg PO Q8H PRN (Reason: pain) Qty: 14 0RF hydrocodone-acetaminophen 5-325 mg tablet 1 tab PO Q8H PRN (Reason: pain) Qty: 10 0RF Rx Instructions: Patient may request partial fill amoxicillin-pot clavulanate 875-125 mg tablet 1 tab PO BID 7 Days Qty: 14 0RF prednisone 20 mg tablet 40 mg PO DAILY 5 Days Qty: 10 0RF acetaminophen [Tylenol Extra Strength] 500 mg tablet 500 mg PO Q6H PRN (Reason: fever or pain) Qty: 14 0RF benzonatate 100 mg capsule 100 mg PO TID PRN (Reason: cough) Qty: 14 0RF fluticasone propionate [Flonase Allergy Relief] 50 mcg/actuation spray,suspension 2 spray intranasal DAILY Qty: 16 0RF Rx Instructions: administer into each nostril amoxicillin-pot clavulanate 875-125 mg tablet 1 tab PO BID 7 Days Qty: 14 0RF ibuprofen 600 mg tablet 600 mg PO Q6H PRN (Reason: pain) Qty: 30 0RF diazepam [Valium] 5 mg tablet 5 mg PO TID PRN (Reason: muscle spasm) Qty: 10 0RF Rx Instructions: partial fill is okay lidocaine 5 % adhesive patch,medicated 1 patch topical DAILY Qty: 30 0RF Rx Instructions: leave on most painful area for up to 12 hrs fluconazole [Diflucan] 150 mg tablet 150 mg PO Q3D Qty: 2 0RF clotrimazole 1 % cream 1 appful vaginal BEDTIME Qty: 45 0RF fluticasone propionate [Flonase Allergy Relief] 50 mcg/actuation spray,suspension 2 spray intranasal DAILY Qty: 16 0RF Rx Instructions: administer into each nostril amoxicillin-pot clavulanate 875-125 mg tablet 1 tab PO BID 7 Days Qty: 14 0RF metoclopramide HCl [Reglan] 10 mg tablet 10 mg PO Q6H PRN (Reason: nausea and vomiting) Qty: 15 0RF cyclobenzaprine 10 mg tablet 10 mg PO BEDTIME PRN (Reason: muscle spasm) Qty: 7 0RF ketorolac 10 mg tablet 10 mg PO TID PRN (Reason: pain) 5 Days Qty: 15 0RF lidocaine 5 % adhesive patch,medicated 1 patch topical DAILY PRN (Reason: pain) Qty: 15 0RF Rx Instructions: leave on most painful area for up to 12 hrs ibuprofen 600 mg tablet 600 mg PO Q8H PRN (Reason: pain) Qty: 10 0RF cyclobenzaprine 10 mg tablet 10 mg PO TID PRN (Reason: muscle spasm) Qty: 10 0RF
--- NOTE | 2023-10-28 17:09 | PC.NURSE ---
pt LWCT - pt informed PCT Delphine that she and her partner would be leaving because the wait time was too long
--- NOTE | 2023-10-28 17:13 | MHC.EDTECH ---
Addendum entered by Delphine Ospina 10/28/23 17:19: Both ANAND BLACK and Triage nurse notified about pt intent to leave. Original Note: Pt called for protocol labwork and UA in ED Triage. Pt and SO asked about exact wait time. Explained to pt and SO that we cannot give an exact wait time since this is an ED and wait is unpredictable. Offered to continue to perform protocol lab work and UA in the effort to reduce wait time. Pt and SO declined and stated they were going to another ER in the area. Pt was normal appearing w/o difficultly breathing, and able to ambulate to the bathroom with normal skin tone and mentation. NAD able to speak full coherent sentences.
== END 2023-10-28 17:34 | disposition left against medical advice (07) ==
PROVIDERS: Emergency Provider Emergency Medicine
DX: O26.891 Other specified pregnancy related conditions, first trimester (principal); R10.30 Lower abdominal pain, unspecified; Z3A.10 10 weeks gestation of pregnancy; Z53.21 Procedure and treatment not carried out due to patient leaving prior to being seen by health care provider
CPT/HCPCS: 99281

== ENCOUNTER 2024-09-10 09:55 | Emergency (ER) | payer OTHER, SELFPAY ==
--- NOTE | ~2024-09-10 | XR_ITS ---
CLINICAL HISTORY: pain radiating down L leg 3 views lumbar spine Comparison: None provided Findings: Normal alignment. No acute fractures or dislocation. No significant degenerative change. IMPRESSION: No acute findings. This document has been electronically signed by: Terry Taylor MD on 09/10/2024 12:06:23
[2024-09-10 10:04] VITALS: BP 112/83; PULSE 85; RESP 16; TEMP 36.4; O2SAT 97; BMI 35.0
--- NOTE | 2024-09-10 10:34 | ED_ITS ---
HPI - General Adult General Chief complaint: Back Pain/Injury Stated complaint: back pain Time Seen by Provider: 09/10/24 10:11 Source: patient, RN notes reviewed and old records reviewed Mode of arrival: ambulatory Limitations: no limitations History of Present Illness ED Provider: Isabel HPI narrative: Patient is a 34-year-old female 4 months not presenting to the emergency department with complaint of lower back pain radiating down left leg since yesterday morning. Reports she was doing more strenuous lifting activities than normal over the past week. Also states that her 4-month-old is 17 lb and she feels her symptoms began after lifting the baby. Denies fall or other trauma. Does report some history of stress incontinence but denies any overt bowel or bladder incontinence, no saddle anesthesia. Denies fevers. Used [id number] lidocaine spray but did not take any oral [id number] pain medications for her symptoms. Reports history of similar pain in the past. Denies any difficulty with ambulation. MD complaint: back pain Onset (ago): day(s) Related Data Previous Rx's ?Medication ?Instructions ?Recorded hydrocodone 5 mg-acetaminophen 325 1 tab PO Q8H PRN pa in #10 tabs 12/30/20 mg tablet ibuprofen 800 mg tablet 800 mg PO Q8H PRN pain #14 t abs 12/30/20 lidocaine HCl 4 % topical cream 1 appl topical BID PRN pain #120 12/30/20 (Aspercreme (lidocaine HCl)) grams amoxicillin 875 mg-potassium 1 tab PO BID 7 days #14 t abs 07/07/21 clavulanate 125 mg tablet diazepam 5 mg tablet (Valium) 5 mg PO TID PRN muscle s pasm #10 12/04/21 tabs ibuprofen 600 mg tablet 600 mg PO Q6H PRN pain #30 t abs 12/04/21 lidocaine 5 % topical patch 1 patch topical DAILY #30 ea 12/04/21 acetaminophen 500 mg tablet 500 mg PO Q6H PRN fever or pain 03/29/22 (Tylenol Extra Strength) #14 tabs amoxicillin 875 mg-potassium 1 tab PO BID 7 days #14 t abs 03/29/22 clavulanate 125 mg tablet benzonatate 100 mg capsule 100 mg PO TID PRN cough #14 caps 03/29/22 fluticasone propionate 50 2 spray intranasal DAILY #16 grams 03/29/22 mcg/actuation nasal spray,suspension (Flonase Allergy Relief) prednisone 20 mg tablet 40 mg (2 x 20 mg) PO DAILY 5 days 03/29/22 #10 tabs clotrimazole 1 % vaginal cream 1 appful vaginal BEDTIM E #45 grams 04/10/22 fluconazole 150 mg tablet 150 mg PO Q3D 2 doses #2 tab s 04/10/22 (Diflucan) cyclobenzaprine 10 mg tablet 10 mg PO BEDTIME PRN musc le spasm 08/31/22 #7 tabs ketorolac 10 mg tablet 10 mg PO TID PRN pain 5 days #15 08/31/22 tabs lidocaine 5 % topical patch 1 patch topical DAILY PRN pain #15 08/31/22 ea amoxicillin 875 mg-potassium 1 tab PO BID 7 days #14 t abs 09/10/22 clavulanate 125 mg tablet fluticasone propionate 50 2 spray intranasal DAILY #16 grams 09/10/22 mcg/actuation nasal spray,suspension (Flonase Allergy Relief) cyclobenzaprine 10 mg tablet 10 mg PO TID PRN muscle s pasm #10 08/03/23 tabs ibuprofen 600 mg tablet 600 mg PO Q8H PRN pain #10 t abs 08/03/23 metoclopramide HCl 10 mg tablet 10 mg PO Q6H PRN nause a and 09/26/23 (Reglan) vomiting #15 tabs lidocaine 5 % topical patch 1 patch topical DAILY #15 ea 09/10/24 naproxen 500 mg tablet 500 mg PO BID #14 tabs 09/10 prednisone 10 mg tablet See Rx Instructions .Route 0 09/10/24 .COMPLEX #15 tabs Allergies Allergy/AdvReac Type Severity Reaction Status Date / Time No Known Allergies Allergy Verified 09/10/24 10:06 Review of Systems Review of Systems: As per HPI Yes all other systems are reviewed and are negative Constitutional: Constitutional: Reports as per HPI PMFSH Past Medical History Medical History Ear infection Social History Social History Alcohol intake: never Patient Tobacco Use Status: Current everyday Tobacco user Advance Directives: No Advance Directives Information Provided: No Do you have a plan to hurt others: No Plan Physical Exam ED Vital Signs: Vital Signs - 24 hr 09/10/24 10:04 Temperature 97.6 F Pulse Rate 85 Respiratory Rate 16 Blood Pressure 112/83 Pulse Oximetry 97 Oxygen Delivery Method Room Air BMI result Body Mass Index 35.0 Vital signs have been reviewed and appear to be correct. Blood pressure normal. Heart rate normal. Respiratory rate normal. Temperature normal. Oxygen saturation normal. Const General: cooperative, healthy appearing and no acute distress Orientation/consciousness: oriented to person, oriented to place, oriented to time and patient oriented x3 Limitations: no limitations HENMT Head: Yes normocephalic and Yes atraumatic Ears: external ears normal General nose exam: Normal external nose present Face and sinus: Yes face symmetric Mouth: oropharynx normal and moist mucous membranes Throat: Yes uvula midline Eyes Pupils: Equal, round and reactive pupils present Neck Neck: Yes normal visual inspection and Yes supple Resp Effort & Inspection: normal respiratory effort and able to speak in complete sentences Auscultation: clear to auscultation bilaterally Cardio Rate: regular rate Rhythm: regular rhythm Heart sounds: S1 normal heart sound present and S2 normal heart sound present GI Palpation (GI): Soft to palpation and nontender Auscultation: normoactive bowel sounds General: Yes no CVA tenderness Back/Spine/Pelvis Back: no CVA tenderness Thoracic/Lumbar Spine: thoracic and lumbar spine normal to inspection, thoraco- lumbar ROM normal, pain with thoraco-lumbar ROM, No thoracic spinal tenderness, No lumbar spinal tenderness and straight leg raise positive left at 30 degrees Skin General skin exam: elasticity normal and turgor normal Neuro General: oriented to person, oriented to place, oriented to time, patient oriented x3, gait normal, tone normal, moves all extremities, Normal light touch and pain sensation, no focal motor deficits, CN's II-XI intact bilaterally and deep tendon reflexes 2+ bilaterally Cranial nerves: Yes Equal, round and reactive pupils present Cognition (Neuro): normal cognition Motor exam (neuro): 5/5 motor strength present throughout, Normal motor muscle tone present throughout and Motor abnormalities not present Extrem General: Yes full ROM, Yes no pedal edema and Yes no calf tenderness Psych Mental Status: mental status grossly normal Affect: normal affect Thought process: Normal thought process present Medications Administered Discontinued Medications Generic Name Dose Route Start Last Admin Trade Name Freq PRN Reason Stop Dose Admin Ketorolac Tromethamine 30 mg 09/10/24 11:23 09/10/24 11:38 Ketorolac Tromethamine 30 Mg/Ml Vial IM 09/10/24 11:24 30 mg ONCE ONE Administration Prednisone 60 mg 09/10/24 11:19 09/10/24 11:38 Prednisone 20 Mg Tablet PO 09/10/24 11:20 60 mg ONCE ONE Administration Medical Decision Making Medical Decision Making [facility] Narrative: Patient is a 34-year-old female 4 months presenting to the emergency department with complaint of lower back pain radiating down left leg since yesterday morning. On exam patient is awake, A+Ox3, VS WNL, afebrile, normal neurological exam without focal deficits, physical exam findings as above. Given reported symptoms and physical exam findings, initial differential includes but is not limited to initial differential includes lumbar strain, lumbar radiculopathy, degenerative disc disease, disc herniation, spinal stenosis, spondylosis. Less likely vertebral fracture. Do not suspect malignancy/mass, SEA, cauda equina/cord compression. X-ray lumbar spine notable for no acute abnormalities. My interpretation is in agreement with the radiologist's interpretation. Results discussed with patient and all questions answered. Symptoms likely due to lumbar radiculopathy, will discharge home on tapering course of prednisone, naproxen, topical lidocaine patches. Advised follow up with PCP. Return precautions discussed at bedside. Patient verbalized understanding of and agreement with plan. Differential Diagnosis Differential Diagnoses: The differential diagnosis associated with the presentation includes as per [facility] Admission/Observation Consideration of admission/observation: Escalation of care including admission/observation considered Patient would have been admitted to the hospital had their work up had any findings where hospital admission was appropriate and their clinical presentation warranted hospital admission. Lab Data Labs: Lab Results 09/10/24 Range/Units 11:37 Urine Test NEGATIVE (NEGATIVE) Independent Interpretation I performed an independent interpretation of an: Plain X-Ray Interpretation: No acute abnormalities of lumbar spine Radiology Impression Discussion of test interpretation with radiology: I have reviewed the radiologist's reading. Radiologist Impression: 3 views lumbar spine Comparison: None provided Findings: Normal alignment. No acute fractures or dislocation. No significant degenerative change. IMPRESSION: No acute findings. External Record Review External record reviewed: Inpatient record, Office record and Outpatient record Prescription Management I considered prescription management with: Pain Medication and Other Discharge Plan Discharge Clinical Impression: Lumbar radiculopathy Patient Disposition: Home, Self-Care Instructions: Lumbar Radiculopathy (ED) Additional Instructions: You were evaluated in the emergency department today for lower back pain. This is likely due to an inflammation of the sciatic nerve with runs from the lower back down both legs. You are being prescribed a course of prednisone which is a steroid to decrease inflammation. You are also being prescribed naproxen which is an anti-inflammatory medication. You have been prescribed 5% topical lidocaine patches which you can wear for up to 12 hours in a 24 hour period. Do not apply heat directly over the patches. Use all medications as prescribed. Please schedule an appointment for follow-up with your primary care physician this week for further evaluation of your symptoms. Return to the emergency department if you experience worsening back pain, difficulty walking, fevers, numbness, tingling, incontinence, groin numbness or tingling, or any other concerning symptoms. Prescriptions: New naproxen 500 mg tablet 500 mg PO BID Qty: 14 0RF prednisone 10 mg tablet See Rx Instructions .Route .COMPLEX Qty: 15 0RF Rx Instructions: 50mg (5 tabs) x1 day, then 40 mg (4 tabs) x1 day, then 30 mg (3 tabs) x1 day, then 20 mg (2 tabs) times 1 day, then 10 mg (1 tab) x1 day lidocaine 5 % adhesive patch,medicated 1 patch topical DAILY Qty: 15 0RF Rx Instructions: leave on most painful area for up to 12 hrs No Action lidocaine HCl [Aspercreme (lidocaine HCl)] 4 % cream 1 appl topical BID PRN (Reason: pain) Qty: 120 0RF ibuprofen 800 mg tablet 800 mg PO Q8H PRN (Reason: pain) Qty: 14 0RF hydrocodone-acetaminophen 5-325 mg tablet 1 tab PO Q8H PRN (Reason: pain) Qty: 10 0RF Rx Instructions: Patient may request partial fill amoxicillin-pot clavulanate 875-125 mg tablet 1 tab PO BID 7 Days Qty: 14 0RF prednisone 20 mg tablet 40 mg PO DAILY 5 Days Qty: 10 0RF acetaminophen [Tylenol Extra Strength] 500 mg tablet 500 mg PO Q6H PRN (Reason: fever or pain) Qty: 14 0RF benzonatate 100 mg capsule 100 mg PO TID PRN (Reason: cough) Qty: 14 0RF fluticasone propionate [Flonase Allergy Relief] 50 mcg/actuation spray,suspension 2 spray intranasal DAILY Qty: 16 0RF Rx Instructions: administer into each nostril amoxicillin-pot clavulanate 875-125 mg tablet 1 tab PO BID 7 Days Qty: 14 0RF ibuprofen 600 mg tablet 600 mg PO Q6H PRN (Reason: pain) Qty: 30 0RF diazepam [Valium] 5 mg tablet 5 mg PO TID PRN (Reason: muscle spasm) Qty: 10 0RF Rx Instructions: partial fill is okay lidocaine 5 % adhesive patch,medicated 1 patch topical DAILY Qty: 30 0RF Rx Instructions: leave on most painful area for up to 12 hrs fluconazole [Diflucan] 150 mg tablet 150 mg PO Q3D Qty: 2 0RF clotrimazole 1 % cream 1 appful vaginal BEDTIME Qty: 45 0RF fluticasone propionate [Flonase Allergy Relief] 50 mcg/actuation spray,suspension 2 spray intranasal DAILY Qty: 16 0RF Rx Instructions: administer into each nostril amoxicillin-pot clavulanate 875-125 mg tablet 1 tab PO BID 7 Days Qty: 14 0RF metoclopramide HCl [Reglan] 10 mg tablet 10 mg PO Q6H PRN (Reason: nausea and vomiting) Qty: 15 0RF cyclobenzaprine 10 mg tablet 10 mg PO BEDTIME PRN (Reason: muscle spasm) Qty: 7 0RF ketorolac 10 mg tablet 10 mg PO TID PRN (Reason: pain) 5 Days Qty: 15 0RF lidocaine 5 % adhesive patch,medicated 1 patch topical DAILY PRN (Reason: pain) Qty: 15 0RF Rx Instructions: leave on most painful area for up to 12 hrs ibuprofen 600 mg tablet 600 mg PO Q8H PRN (Reason: pain) Qty: 10 0RF cyclobenzaprine 10 mg tablet 10 mg PO TID PRN (Reason: muscle spasm) Qty: 10 0RF Print Language: Kinyarwanda
--- NOTE | 2024-09-10 11:21 | PC.NURSE ---
Patient states that they are not . TA Reynolds aware. Patient continues to stand for position of comfort, while bent at the waist, resting arms & head on an elevated bed. Provider aware.
[2024-09-10] MEDS: Ketorolac Tromethamine 30 MG/ML VIAL IM (11:38)
[2024-09-10] MEDS: predniSONE 20 MG TABLET 60 MG PO (11:38)
[2024-09-10 11:45] LABS: UPreg QC Valid YES; Urine Pregnancy NEGATIVE (NEGATIVE)
[2024-09-10 12:14] VITALS: BP 106/54; PULSE 61; RESP 18; TEMP 36.1; O2SAT 99
[2024-09-10 12:31] VITALS: BP 106/54; PULSE 61; RESP 18; TEMP 36.1; O2SAT 99
== END 2024-09-10 12:31 | disposition home or self-care (01) ==
PROVIDERS: Registered Nurse Emergency; Emergency Provider Emergency Medicine
DX: M54.16 Radiculopathy, lumbar region (principal); M54.50 Low back pain, unspecified; M79.605 Pain in left leg
CPT/HCPCS: 72100; 81025; 96372; 99283; 99284; J1885

== ENCOUNTER → 2024-09-10 10:34 | Outpatient (BNV) | payer OTHER, SELFPAY | PROVIDERS: Emergency Provider Emergency Medicine; Visit Provider Radiology Vascular & Interventional Radiology | DX: M54.42 Lumbago with sciatica, left side (principal) | CPT/HCPCS: 72100 ==

== ENCOUNTER 2024-11-14 08:28 | Emergency (ER) | payer OTHER, SELFPAY ==
--- NOTE | ~2024-11-14 | XR_ITS ---
EXAMINATION: XR CHEST 2 VIEWS HISTORY: cough, congestion COMPARISON: Comparison is made with the prior examination dated 03/29/2022. FINDINGS: PA and lateral views of the chest are submitted. The lungs are expanded and clear. There is no pleural effusion, pneumothorax, or pulmonary vascular congestion. The heart is normal in size. The bones are intact. XR/XR chest 2V IMPRESSION: No acute cardiopulmonary abnormality. Electronically signed by: Dewey Woody MD 11/14/2024 09:06 AM EDT
[2024-11-14 08:37] VITALS: BMI 34.5
[2024-11-14 08:55] VITALS: BP 131/77; PULSE 82; RESP 16; TEMP 36.8; O2SAT 97
--- NOTE | 2024-11-14 09:06 | ED_ITS ---
HPI - URI/Sore Throat General Chief Complaint: Upper Respiratory Symptoms Stated Complaint: Congested Time Seen by Provider: 11/14/24 08:57 Source: patient and RN notes reviewed Mode of arrival: ambulatory Limitations: no limitations History of Present Illness ED Provider: Corine Holguin PA-C HPI Narrative: This is a 34-year-old female, who is 6 months , who presents emergency department with concerns of nasal congestion, runny nose, facial pain, low-grade fevers, cough, nausea, vomiting, and diarrhea which started yesterday. Patient states that this morning she awoke with facial pressure and nasal discharge. She states that she has had a decreased appetite, and states that she forced herself to eat which ultimately resulted in her having multiple episodes of vomiting. She also reports that she has had multiple episodes of diarrhea. No bloody or black stool. No hemoptysis. She has been taking Tylenol as well as DayQuil for her symptoms, last dose of DayQuil was this morning. No known sick contacts. 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 She also has a 6-month-old at home. She denies any constant chest pain. She denies any abdominal pain. No urinary symptoms. No other complaints or concerns at this time. MD elicited complaint: fever (Low-grade), cough, rhinorrhea, nasal congestion and sinus pain Onset (ago): day(s) Consistency: constant Severity: moderate Description of mucous: watery Able to tolerate fluids by mouth: Yes Exacerbating factors: nothing Relieving factors: OTC cold medicine Associated symptoms: fever and cough Treatments prior to arrival: cold medicine Related Data Previous Rx's ?Medication ?Instructions ?Recorded hydrocodone 5 mg-acetaminophen 325 1 tab PO Q8H PRN pa in #10 tabs 12/30/20 mg tablet ibuprofen 800 mg tablet 800 mg PO Q8H PRN pain #14 t abs 12/30/20 lidocaine HCl 4 % topical cream 1 appl topical BID PRN pain #120 12/30/20 (Aspercreme (lidocaine HCl)) grams amoxicillin 875 mg-potassium 1 tab PO BID 7 days #14 t abs 07/07/21 clavulanate 125 mg tablet diazepam 5 mg tablet (Valium) 5 mg PO TID PRN muscle s pasm #10 12/04/21 tabs ibuprofen 600 mg tablet 600 mg PO Q6H PRN pain #30 t abs 12/04/21 lidocaine 5 % topical patch 1 patch topical DAILY #30 ea 12/04/21 acetaminophen 500 mg tablet 500 mg PO Q6H PRN fever or pain 03/29/22 (Tylenol Extra Strength) #14 tabs amoxicillin 875 mg-potassium 1 tab PO BID 7 days #14 t abs 03/29/22 clavulanate 125 mg tablet benzonatate 100 mg capsule 100 mg PO TID PRN cough #14 caps 03/29/22 fluticasone propionate 50 2 spray intranasal DAILY #16 grams 03/29/22 mcg/actuation nasal spray,suspension (Flonase Allergy Relief) prednisone 20 mg tablet 40 mg (2 x 20 mg) PO DAILY 5 days 03/29/22 #10 tabs clotrimazole 1 % vaginal cream 1 appful vaginal BEDTIM E #45 grams 04/10/22 fluconazole 150 mg tablet 150 mg PO Q3D 2 doses #2 tab s 04/10/22 (Diflucan) cyclobenzaprine 10 mg tablet 10 mg PO BEDTIME PRN musc le spasm 08/31/22 #7 tabs ketorolac 10 mg tablet 10 mg PO TID PRN pain 5 days #15 08/31/22 tabs lidocaine 5 % topical patch 1 patch topical DAILY PRN pain #15 08/31/22 ea amoxicillin 875 mg-potassium 1 tab PO BID 7 days #14 t abs 09/10/22 clavulanate 125 mg tablet fluticasone propionate 50 2 spray intranasal DAILY #16 grams 09/10/22 mcg/actuation nasal spray,suspension (Flonase Allergy Relief) cyclobenzaprine 10 mg tablet 10 mg PO TID PRN muscle s pasm #10 08/03/23 tabs ibuprofen 600 mg tablet 600 mg PO Q8H PRN pain #10 t abs 08/03/23 metoclopramide HCl 10 mg tablet 10 mg PO Q6H PRN nause a and 09/26/23 (Reglan) vomiting #15 tabs lidocaine 5 % topical patch 1 patch topical DAILY #15 ea 09/10/24 naproxen 500 mg tablet 500 mg PO BID #14 tabs 09/10 prednisone 10 mg tablet See Rx Instructions .Route 0 09/10/24 .COMPLEX #15 tabs Allergies Allergy/AdvReac Type Severity Reaction Status Date / Time No Known Allergies Allergy Verified 11/14/24 08:38 Review of Systems Review of Systems: Yes all other systems are reviewed and are negative Constitutional: Constitutional: Reports as per [facility] Past Medical History Medical History Ear infection Social History Social History Alcohol intake: never Patient Tobacco Use Status: Current everyday Tobacco user Advance Directives: No Advance Directives Information Provided: No Physical Exam Vital Signs: Vital Signs: Last Vital Signs Temp 98.2 F 11/14/24 08:55 Pulse 82 11/14/24 08:55 Resp 16 11/14/24 08:55 BP 131/77 11/14/24 08:55 Pulse Ox 97 11/14/24 08:55 O2 Del Method Room Air 11/14/24 08:55 BMI result Body Mass Index 34.5 Const: General: cooperative, comfortable and no acute distress Orientation/consciousness: patient oriented x3 Limitations: no limitations HEENT: Other: Tenderness palpation along the frontal, maxillary, and ethmoid sinuses Head: Yes normal to inspection, Yes normocephalic and Yes atraumatic Ears: hearing grossly normal bilaterally and TM's normal bilaterally General nose exam: Normal external nose present Face and sinus: Yes normal facial exam Mouth: Normal oral and palatal mucosa present, oropharynx normal and moist mucous membranes Throat: Yes posterior oropharynx normal Eyes: General: appearance normal, both eyes and all related structures Eyelids: Yes eyelids normal Conjunctivae: conjunctivae normal Sclerae: sclerae normal Pupils: Equal, round and reactive pupils present EOM: EOMs intact bilaterally Neck: Neck: Yes normal visual inspection, Yes full ROM and Yes no lymphadenopathy Lymphatic: no lymphadenopathy noted Chest: Chest palpation & inspection: normal inspection of the chest Resp: Effort & Inspection: normal respiratory effort and able to speak in complete sentences Auscultation: clear to auscultation bilaterally, no crackles, no rales, no rhonchi and no wheezes Cardio: Rate: regular rate Rhythm: regular rhythm Heart sounds: S1 normal heart sound present and S2 normal heart sound present GI: Other: Abdomen is soft, nontender, nondistended Inspection: Yes normal to inspection Skin: General skin exam: no rashes or lesions noted Trauma: no lacerations or abrasions Wounds: no wounds Neuro: General: patient oriented x3 and moves all extremities Cranial nerves: Yes Equal, round and reactive pupils present Extrem: General: Yes normal to inspection Right upper extremity: normal to inspection Left upper extremity: normal to inspection Right lower extremity: normal to inspection Left lower extremity: normal to inspection Medical Decision Making Medical Decision Making MDM Narrative: This is a 34-year-old female who presents emergency department with concerns of congestion, cough, nausea, vomiting, diarrhea, sore throat, since yesterday. On arrival, vital signs within normal limits. She is speaking full sentences under no acute distress. Viral swabs as well as chest x-ray were ordered prior to my evaluation. Lungs are clear to auscultation bilaterally, abdomen is soft and nontender. Patient reports decreased appetite, no abdominal pain. Given that she is able to tolerate fluids by mouth, and only had several episodes of vomiting and diarrhea, deferring labs at this time as this appears to be a viral presentation. Viral swabs were obtained, and are pending at this time. Chest x-ray was obtained revealing no acute cardiopulmonary abnormality. 9:33 AM 11/14/2024 (Corine Holguin PA-C): COVID negative, influenza a and B negative, strep negative. Chest x-ray with obtain and is unremarkable. They did not initially get an RSV test, given that she has a at home, additional swabs were ordered for rule out of RSV. 11:17 AM 11/14/2024 (Corine Holguin PA-C): RSV negative. Patient's symptoms likely viral in nature. Discussed findings with patient. Given strict return precautions. Patient understands and agrees with plan. Patient stable for discharge. Differential Diagnosis Differential Diagnoses: The differential diagnosis associated with the presentation includes COVID, flu, RSV, strep, pneumonia, viral illness Admission/Observation Consideration of admission/observation: Escalation of care including admission/observation considered Lab Data MDM Lab Attestation statement: I reviewed the patient's lab results. Negative Labs: Lab Results 11/14/24 11/14/24 11/14/24 Range/Units 08:37 08:39 09:40 COVID-19 (DOUG) Negative (Negative) COVID-19 Clin Com See Note Influenza Type A (JERONIMO) Negative (Negative) Influenza Type A (PCR) NEGATIVE (Negative) Influenza Type B (JERONIMO) Negative (Negative) Influenza Type B (PCR) NEGATIVE (Negative) Influenza A & B Note See Note RSV RNA Qual (PCR) NEGATIVE (Negative) SARS-CoV-2 RNA (RT-PCR) NEGATIVE (Negative) S. pyogenes GrpA JERONIMO Negative (Negative) Radiology Impression Discussion of test interpretation with radiology: I have reviewed the radiologist's reading. Radiologist Impression: HISTORY: cough, congestion COMPARISON: Comparison is made with the prior examination dated 03/29/2022. FINDINGS: PA and lateral views of the chest are submitted. The lungs are expanded and clear. There is no pleural effusion, pneumothorax, or pulmonary vascular congestion. The heart is normal in size. The bones are intact. XR/XR chest 2V IMPRESSION: No acute cardiopulmonary abnormality. Electronically signed by: Dewey Woody MD 11/14/2024 09:06 AM EDT RP Dictated By: Dewey Woody MD Discharge Plan Discharge Clinical Impression: Upper respiratory infection Patient Disposition: Home, Self-Care Instructions: Upper Respiratory Infection (ED), Viral Syndrome (ED) Additional Instructions: You were seen in the emergency department today. You tested negative for COVID, strep, flu, RSV. Your chest x-ray was normal. You likely have a virus that is causing you to have the symptoms. Please be wary that your symptoms may be contagious therefore take the appropriate precautions when around your and others. Drink plenty of fluids and get plenty of rest. Alternate between ibuprofen and or Tylenol as needed. Follow-up with your primary care. If any new or worsening symptoms occur including but not limited to severe chest pain, shortness of breath, please seek emergent care. Prescriptions: No Action lidocaine HCl [Aspercreme (lidocaine HCl)] 4 % cream 1 appl topical BID PRN (Reason: pain) Qty: 120 0RF ibuprofen 800 mg tablet 800 mg PO Q8H PRN (Reason: pain) Qty: 14 0RF hydrocodone-acetaminophen 5-325 mg tablet 1 tab PO Q8H PRN (Reason: pain) Qty: 10 0RF Rx Instructions: Patient may request partial fill amoxicillin-pot clavulanate 875-125 mg tablet 1 tab PO BID 7 Days Qty: 14 0RF prednisone 20 mg tablet 40 mg PO DAILY 5 Days Qty: 10 0RF acetaminophen [Tylenol Extra Strength] 500 mg tablet 500 mg PO Q6H PRN (Reason: fever or pain) Qty: 14 0RF benzonatate 100 mg capsule 100 mg PO TID PRN (Reason: cough) Qty: 14 0RF fluticasone propionate [Flonase Allergy Relief] 50 mcg/actuation spray,suspension 2 spray intranasal DAILY Qty: 16 0RF Rx Instructions: administer into each nostril amoxicillin-pot clavulanate 875-125 mg tablet 1 tab PO BID 7 Days Qty: 14 0RF ibuprofen 600 mg tablet 600 mg PO Q6H PRN (Reason: pain) Qty: 30 0RF diazepam [Valium] 5 mg tablet 5 mg PO TID PRN (Reason: muscle spasm) Qty: 10 0RF Rx Instructions: partial fill is okay lidocaine 5 % adhesive patch,medicated 1 patch topical DAILY Qty: 30 0RF Rx Instructions: leave on most painful area for up to 12 hrs fluconazole [Diflucan] 150 mg tablet 150 mg PO Q3D Qty: 2 0RF clotrimazole 1 % cream 1 appful vaginal BEDTIME Qty: 45 0RF fluticasone propionate [Flonase Allergy Relief] 50 mcg/actuation spray,suspension 2 spray intranasal DAILY Qty: 16 0RF Rx Instructions: administer into each nostril amoxicillin-pot clavulanate 875-125 mg tablet 1 tab PO BID 7 Days Qty: 14 0RF metoclopramide HCl [Reglan] 10 mg tablet 10 mg PO Q6H PRN (Reason: nausea and vomiting) Qty: 15 0RF naproxen 500 mg tablet 500 mg PO BID Qty: 14 0RF prednisone 10 mg tablet See Rx Instructions .Route .COMPLEX Qty: 15 0RF Rx Instructions: 50mg (5 tabs) x1 day, then 40 mg (4 tabs) x1 day, then 30 mg (3 tabs) x1 day, then 20 mg (2 tabs) times 1 day, then 10 mg (1 tab) x1 day lidocaine 5 % adhesive patch,medicated 1 patch topical DAILY Qty: 15 0RF Rx Instructions: leave on most painful area for up to 12 hrs cyclobenzaprine 10 mg tablet 10 mg PO BEDTIME PRN (Reason: muscle spasm) Qty: 7 0RF ketorolac 10 mg tablet 10 mg PO TID PRN (Reason: pain) 5 Days Qty: 15 0RF lidocaine 5 % adhesive patch,medicated 1 patch topical DAILY PRN (Reason: pain) Qty: 15 0RF Rx Instructions: leave on most painful area for up to 12 hrs ibuprofen 600 mg tablet 600 mg PO Q8H PRN (Reason: pain) Qty: 10 0RF cyclobenzaprine 10 mg tablet 10 mg PO TID PRN (Reason: muscle spasm) Qty: 10 0RF Stand Alone Forms: Work/School Release Print Language: Syriac
[2024-11-14 09:09] LABS: IDNOW Serial# 55D5AD1C; Strep A Nucleic Acid Negative (Negative)
[2024-11-14 09:22] LABS: COVID-19 Test Negative (Negative); IDNOW Serial# 58CA691E
[2024-11-14 09:26] LABS: IDNOW Serial# 08D9AD1C; Influenza B2 Negative (Negative)
[2024-11-14 10:26] LABS: Resp Syncy Virus RNA Qual PCR NEGATIVE (Negative); SARS COV2 PCR INHOUSE NEGATIVE (Negative)
[2024-11-14 11:18] VITALS: BP 131/77; PULSE 82; RESP 16; TEMP 36.8; O2SAT 97
== END 2024-11-14 11:24 | disposition home or self-care (01) ==
PROVIDERS: Physician Assistant Medical; Emergency Provider Emergency Medicine
DX: J06.9 Acute upper respiratory infection, unspecified (principal); R11.2 Nausea with vomiting, unspecified; R19.7 Diarrhea, unspecified
CPT/HCPCS: 71046; 87502; 87635; 87637; 87651; 99283; 99284

== ENCOUNTER → 2024-11-14 08:37 | Outpatient (BNV) | payer OTHER, SELFPAY | PROVIDERS: Emergency Provider Emergency Medicine; Visit Provider Radiology Diagnostic Radiology | DX: R05.9 Cough, unspecified (principal); R09.89 Other specified symptoms and signs involving the circulatory and respiratory systems | CPT/HCPCS: 71046 ==